=== PATIENT | male | born 1955 | race Caucasian/White ===

== ENCOUNTER 2016-11-03 19:24 | Emergency (ER) | payer BC ==
[2016-11-03 19:29] VITALS: BP 137/85; PULSE 75; TEMP 97.6; BMI 27.1
[2016-11-03] MEDS ORDERED: TRIAMCINOLONE ACET 40MG/1ML VIAL IM ONE (20:34)
[2016-11-03] MEDS ORDERED: TRIAMCINOLONE ACET 40MG/1ML VIAL ONE (20:36)
--- NOTE | 2016-11-03 20:42 | PDOC ---
History of Present Illness - General Chief Complaint: Rash Stated Complaint: RASH Time Seen by Provider: 11/03/16 19:55 History Source: Patient Exam Limitations: No Limitations - History of Present Illness Initial Comments: 11/03/16 20:37 My Chief Complaint: itchy rash getting worse arms, legs and abdomen History of Present Illness: Pt. is a 61 y'/o male with h/o gout and renal calculi here today complaining of worsening pruritic rash to b/l arms, legs and abdomen after working outside last week with trees. Pt. saw his PCP was given rx for prednisone 20 mg bid for 3 days than one tab daily pt. took for 6 days without improvement rash continues to develop. Pt states he gets this every year is highly allergic to poison león. Pt. denies any difficulty swollowing or breathing. Pt. requesting shot of Kenalog Timing/Duration: getting worse Severity: moderate Associated Symptoms: reports: rash (pruritic) Past History - Past Medical History Allergies/Adverse Reactions: Allergies Allergy/AdvReac Type Severity Reaction Status Date / Time No Known Allergies Allergy Verified 11/03/16 19:27 Home Medications: Ambulatory Orders Allopurinol [Zyloprim -] 0 mg PO DAILY 03/18/16 Anemia: No Asthma: No Cancer: No Cardiac Disorders: No CVA: No COPD: No CHF: No Dementia: No Diabetes: No GI Disorders: No Disorders: No HTN: No Hypercholesterolemia: No Kidney Stones: Yes Liver Disease: No Suicide Attempt (Hx): No Seizures: No Thyroid Disease: No - Surgical History Abdominal Surgery: Yes (HIATAL HERNIA REPAIR) Cholecystectomy: Yes - Psycho/Social/Smoking Cessation Hx Anxiety: No Suicidal Ideation: No Smoking Status: No Smoking History: Never smoked Have you smoked in the past 12 months: No Number of Cigarettes Smoked Daily: 0 If you are a former smoker, when did you quit?: STOPPED 30YEARS AGO Hx Alcohol Use: No Drug/Substance Use Hx: No Substance Use Type: None Hx Substance Use Treatment: No Review of Systems - Review of Systems Able to Perform ROS?: Yes Constitutional: No: Symptoms Reported HEENTM: No: Symptoms Reported Respiratory: No: Symptoms reported Cardiac (ROS): No: Symptoms Reported ABD/GI: No: Symptoms Reported : No: Symptoms Reported Musculoskeletal: No: Symptoms Reported Integumentary: Yes: Pruritus, Rash (b/ arms, abdomen and legs) Neurological: No: Symptoms reported *Physical Exam - Vital Signs Last Vital Signs Temp Pulse Resp BP Pulse Ox 97.6 F 75 18 137/85 96 11/03/16 19:27 11/03/16 19:27 11/03/16 19:27 11/03/16 19:27 11/03/16 19:27 - Physical Exam General Appearance: Yes: Appropriately Dressed Respiratory/Chest: positive: Lungs Clear, Normal Breath Sounds. negative: Chest Tender, Respiratory Distress Cardiovascular: positive: Regular Rhythm, Regular Rate, S1, S2 Integumentary: positive: Rash (b/l arms linear rash with tiny vesicles some dry , and b/l lower legs, few on abdomen ) Neurologic: positive: Alert, Normal Response, Responsive Medical Decision Making - Medical Decision Making 11/03/16 20:42 Pt. is a 61 y'/o male with h/o gout and renal calculi here today complaining of worsening pruritic rash to b/l arms, legs and abdomen after working outside last week with trees. Pt. saw his PCP was given rx for prednisone 20 mg bid for 3 days than one tab daily pt. took for 6 days without improvement rash continues to develop. Pt states he gets this every year is highly allergic to poison león. Pt. denies any difficulty swollowing or breathing. Pt. requesting shot of Kenalog Contact dermatitis PLAN: kenalog 40 mg IM now pt to stop prednisone *DC/Admit/Observation/Transfer Diagnosis at time of Disposition: Toxicodendron dermatitis - Discharge Dispostion Disposition: HOME Condition at time of disposition: Stable - Patient Instructions Additional Instructions: RETURN TO EMERGENCY ROOM IF SYMPTOMS WORSEN OR NEW SYMPTOMS DEVELOP FOLLOW UP WITH YOUR PRIMARY CARE PHYSICIAN WITHIN NEXT FEW DAYS STOP PREDNISONE PATIENT VOICED UNDERSTANDING OF DISCHARGE INSTRUCTIONS AND ALL QUESTIONS WERE ANSWERED
== END 2016-11-03 20:48 | disposition home or self-care (01) ==
LOC: JERFT 19:24
PROC: 3E0233Z Introduction of Anti-inflammatory into Muscle, Percutaneous Approach (ICD-10-PCS; principal; 2016-11-03)
DX: L23.7 Allergic contact dermatitis due to plants, except food (principal)
CPT/HCPCS: 99281-25

== ENCOUNTER 2016-11-22 05:25 | Observation (INO) | payer BC ==
[2016-11-22 05:51] VITALS: BMI 28.5
[2016-11-22] MEDS ORDERED: KETOROLAC TROMETHAMINE 30 MG/1 ML VIAL IVPUSH ONE (07:56)
--- NOTE | 2016-11-22 08:03 | PDOC ---
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 He first noticed the swelling on Wednesday in his 5th digit. Since then, it has spread to his whole hand. He is unable to close his fist or fully extend his 5th digit. He has not noted any warmth or erythema at the site. He denies fevers/chills or any other systemic symptoms. He has never had similar symptoms with gout flares. REVIEW OF SYSTEMS: GENERAL/CONSTITUTIONAL: No fever or chills. No weakness. No weight change. HEAD, EYES, EARS, NOSE AND THROAT: No change in vision. No ear pain or discharge. No sore throat. CARDIOVASCULAR: No chest pain or palpitations. RESPIRATORY: No cough, wheezing, or shortness of breath. GASTROINTESTINAL: No nausea, vomiting, diarrhea or constipation. GENITOURINARY: No dysuria, frequency, or change in urination. MUSCULOSKELETAL: See HPI SKIN: No rash or easy bruising. NEUROLOGIC: No headache, vertigo, loss of consciousness, or loss of sensation. PSYCHIATRIC: No depression or anxiety. ENDOCRINE: No increased thirst. No abnormal weight change. HEMATOLOGIC/LYMPHATIC: No anemia, easy bleeding, or history of blood clots. ALLERGIC/IMMUNOLOGIC: No hives or skin allergy. No latex allergy. PHYSICAL EXAM: GENERAL: The patient is awake, alert, and fully oriented, in no acute distress. HEAD: Normal with no signs of trauma. ENT: Pupils equal, round and reactive to light, extraocular movements intact, sclera anicteric, conjunctiva clear. Neck supple. LUNGS: Clear to auscultation bilaterally. Normal excursion. No respiratory distress or use of accessory muscles. CV: RRR, S1/S2, no MRG. Cap refill < 2 sec. ABDOMEN: Soft, non-distended, non-tender. EXTREMITIES: Markedly edematous right hand; 5th digit held in flexion, unable to fully extend, very tender. Mild forearm and upper arm tenderness.No appreciable erythema or warmth. Radial and ulnar pulses 2+. Compartments soft. NEUROLOGICAL: Normal speech, normal gait. CN II-XII grossly intact. PSYCH: Normal mood, normal affect. SKIN: Warm, dry, normal turgor, no rashes or lesions noted. Past History - Past Medical History Allergies/Adverse Reactions: Allergies Allergy/AdvReac Type Severity Reaction Status Date / Time No Known Allergies Allergy Verified 11/22/16 05:51 Home Medications: Ambulatory Orders Allopurinol [Zyloprim -] 0 mg PO DAILY 03/18/16 Anemia: No Asthma: No Cancer: No Cardiac Disorders: No CVA: No COPD: No CHF: No Dementia: No Diabetes: No GI Disorders: No Disorders: No HTN: No Hypercholesterolemia: No Kidney Stones: Yes Liver Disease: No Suicide Attempt (Hx): No Seizures: No Thyroid Disease: No - Surgical History Abdominal Surgery: Yes (HIATAL HERNIA REPAIR) Cholecystectomy: Yes - Psycho/Social/Smoking Cessation Hx Anxiety: No Suicidal Ideation: No Smoking Status: No Smoking History: Never smoked Have you smoked in the past 12 months: No Number of Cigarettes Smoked Daily: 0 If you are a former smoker, when did you quit?: STOPPED 30YEARS AGO Information on smoking cessation initiated: No Hx Alcohol Use: No Drug/Substance Use Hx: No Substance Use Type: None Hx Substance Use Treatment: No *Physical Exam - Vital Signs Last Vital Signs Temp Pulse Resp BP Pulse Ox 98.7 F 56 L 18 146/94 99 11/22/16 05:48 11/22/16 05:48 11/22/16 05:48 11/22/16 05:48 11/22/16 05:48 ED Treatment Course - LABORATORY CBC & Chemistry Diagram: 11/22/16 08:18 11/22/16 08:18 - RADIOLOGY Radiology Studies Ordered: Category Date Time Status HAND- RIGHT [RAD] Stat Radiology 11/22/16 08:02 Ordered DUPLEX VASCUL US-1 ARM [US] Stat Ultrasound 11/22/16 08:02 Ordered Medical Decision Making - Medical Decision Making 11/22/16 08:20 A/P: 61 year old male with non-traumatic right hand swelling and limited ROM. Differential includes flexor tenosynovitis, upper extremity DVT, and gout ( although atypical). 1. Labs including CBC, comp, ESR/CRP, uric acid 2. Hand x-ray 3. Upper extremity duplex u/s 4. Toradol 30mg IVP for pain 5. Empiric antibiotics for flexor tenosynovitis 6. Orthopedic consultation 11/22/16 09:11 Duplex: negative for DVT Hand xray: swelling, flexed digits Uric acid is within normal limits at 5.1 Orthopedics paged for urgent evaluation 11/22/16 10:04 Orthopedics paged 11/22/16 10:[address] Mendez who will evaluate in ED. 11/22/16 12:[address] Mendez who recommends observation and IV abx. Dr. Martinez accepts admission. Requests ID consult, Solu-Medrol, and allopurinol to be given now. *DC/Admit/Observation/Transfer Diagnosis at time of Disposition: Flexor tenosynovitis of finger Cellulitis Qualifiers: Site of cellulitis: trunk Site of cellulitis of trunk: back Qualified Code(s): L03.312 - Cellulitis of back [any part except buttock] - Discharge Dispostion Admit: Yes - Referrals Referrals: Nghia Hawley MD [Primary Care Provider] -
[2016-11-22] MEDS ORDERED: KETOROLAC TROMETHAMINE 30 MG/1 ML VIAL ONE (08:12)
[2016-11-22] MEDS ORDERED: CEFTRIAXONE 1 GM in DEXTROSE 5%-WATER - 50 ML IVPB ONE (08:21)
--- NOTE | 2016-11-22 08:21 | PDOC ---
*Physical Exam - Vital Signs Last Vital Signs Temp Pulse Resp BP Pulse Ox 98.7 F 56 L 18 146/94 99 11/22/16 05:48 11/22/16 05:48 11/22/16 05:48 11/22/16 05:48 11/22/16 05:48 ED Treatment Course - LABORATORY CBC & Chemistry Diagram: 11/22/16 08:18 11/22/16 08:18 - Medications Given in the ED: ED Medications Discontinued Medications Generic Name Dose Route Start Last Admin Trade Name Marcela PRN Reason Stop Dose Admin Ketorolac Tromethamine 30 mg 11/22/16 07:56 11/22/16 08:10 Toradol Injection - IVPUSH 11/22/16 07:57 30 mg ONCE ONE Administration Medical Decision Making - Medical Decision Making 11/22/16 10:33 Agree with POWER TRANSMISSION ENGINEER's evaluation, assessment, and plan. 61M with h/o gout presents to ER with R hand pain and swelling. Began in the 5th digit and spread to rest of fingers. Exam notable for tenderness along flexor tendons with severe pain upon extension of fingers. Concerning for flexor tenosynovitis. - Labs, cultures - XR - Ortho consult - IV abx - Admit 11/22/16 14:28 Pt seen by ortho Dr. Santamaria, who does not believe pt has FTS. Recommends IV abx and admission. *DC/Admit/Observation/Transfer Diagnosis at time of Disposition: Flexor tenosynovitis of finger Cellulitis Qualifiers: Site of cellulitis: trunk Site of cellulitis of trunk: back Qualified Code(s): L03.312 - Cellulitis of back [any part except buttock] - Referrals Referrals: Nghia Hawley MD [Primary Care Provider] - - Attestations Physician Attestion: 11/22/16 14:30 I, Dr. Aaron Ayon MD, attest that this document has been prepared under my direction and personally reviewed by me in its entirety. I further attest, that it accurately reflects all work, treatment, procedures and medical decision -making performed by me.
[2016-11-22 08:31] LABS: BASOPHIL 0.7 % (0-2.0); MCH 32.6 pg (25.7-33.7); MCHC 33.7 g/dl (32.0-35.9); MEAN CELL VOLUME 96.9 fl (80-96); MEAN PLT VOLUME 8.1 fl (7.5-11.1); PLATELET COUNT 126 K/MM3 (134-434); RDW 13.9 % (11.9-15.9); WHITE BLOOD COUNT 4.3 K/mm3 (4.0-10.0)
[2016-11-22 08:57] LABS: C-REACTIVE PROTEIN < 0.3 MG/DL (0.00-0.3)
[2016-11-22 08:58] LABS: INR 1.04 (0.82-1.09); PROTHROMBIN TIME (PATIENT) 11.5 SEC (9.98-11.88)
[2016-11-22 09:03] LABS: ALBUMIN 3.5 g/dl (3.4-5.0); ALK PHOS 81 U/L (45-117); ANION GAP 8 (8-16); BILIRUBIN,TOTAL 1.2 mg/dL (0.2-1.0); CALCIUM 8.6 mg/dL (8.5-10.1); CO2 28 mmol/L (21-32); GLUCOSE,RANDOM 91 mg/dL (74-106); SGOT/AST 22 U/L (15-37); SGPT/ALT 35 U/L (12-78); TOT PROT 6.4 g/dl (6.4-8.2); URIC ACID 5.1 mg/dL (2.6-7.2)
[2016-11-22] MEDS ORDERED: VANCOMYCIN 1 GRAM (PRE-DOCKED) 250 ML IVPB ONE ×2 (09:05→22:30)
[2016-11-22] MEDS ORDERED: CEFTRIAXONE 50 ML ONE (09:05)
[2016-11-22] MEDS ORDERED: VANCOMYCIN 1,000 MG in DEXTROSE 5%-WATER - 250 ML IVPB SCH (10:00)
--- NOTE | 2016-11-22 12:32 | CON.ORTH ---
Consult Consult Specialty:: orthopedics Reason for Consultation:: right hand pain - History of Present Illness History of Present Illness: 61y M here for R hand pain, swelling -started as swelling in the small finger -no trauma -no previous similar episodes in hand but does have hx of gout -pain, swelling spread to hand, fingers -no fevers, chills, nightsweats -notes moderate pain - History Source History Provided By: Patient Limitations to Obtaining History: No Limitations - Alcohol/Substance Use Hx Alcohol Use: No - Smoking History Smoking history: Never smoked Have you smoked in the past 12 months: No Aproximately how many cigarettes per day: 0 If you are a former smoker, when did you quit?: STOPPED 30YEARS AGO Home Medications - Allergies Allergies/Adverse Reactions: Allergies Allergy/AdvReac Type Severity Reaction Status Date / Time No Known Allergies Allergy Verified 11/22/16 05:51 - Home Medications Home Medications: Ambulatory Orders Allopurinol [Zyloprim -] 0 mg PO DAILY 03/18/16 Physical Exam for Ortho Vital Signs: Vital Signs Temperature 98.7 F 11/22/16 05:48 Pulse Rate 50 L 11/22/16 09:48 Respiratory Rate 18 11/22/16 05:48 Blood Pressure 134/90 11/22/16 09:48 O2 Sat by Pulse Oximetry (%) 98 11/22/16 09:48 Constitutional: Yes: Well Nourished, No Distress, Calm Cardiovascular: Yes: Regular Rate and Rhythm Respiratory: Yes: Regular. No: Accessory Muscle Use Gastrointestinal: Yes: Soft. No: Distention Extremities: Yes: Other (right hand exam shows mild erythema. no skin breaks. diffuse moderate swelling but no fusiform swelling. moderate limitation to finger rom but active flexion, extension intact. there is mild discomfort on passive extension. no tenderness over the flexor sheaths in the palm. all of the digits are held in slight flexion. sensation intact to lt. fds fdp ed intact to all digits. cr<2) Labs: CBC, BMP 11/22/16 08:18 11/22/16 08:18 INR, PTT INR 1.04 (0.82-1.09) 11/22/16 08:30 Imaging - Results X-ray: Report Reviewed, Image Reviewed (there is mild degenerative change, no fractures, no foreign body) Problem List - Problems (1) Cellulitis of right hand Code(s): L03.113 - CELLULITIS OF RIGHT UPPER LIMB
[2016-11-22] MEDS ORDERED: ALLOPURINOL 300 MG TABLET (FP) PO ONE (14:21)
[2016-11-22] MEDS ORDERED: methylPREDNISolone NA SUCC 40 MG/1 ML VIAL IVPB ONE (14:22)
[2016-11-22] MEDS ORDERED: methylPREDNISolone NA SUCC 40 MG/1 ML VIAL ONE (14:42)
--- NOTE | 2016-11-22 19:54 | HP ---
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 On 11/20 his right fifth finger became swollen and on 11/21 swelling got worse and spread all over the right hand and he could sleep due to severe pain and came to ED at 5.30 this AM .Denies any cuts of the skin of the hand but had used bleach to remove the chemical from his hand. He was seen by in the ED and diagnosed cellulitis. Xray showed only swelling and duplex US did not show any thrombosis. He was treated with IV Vancomycin and Rocephin and also give IV Solumedrol. Patient now feels that he can flex the fingers which he couldn't before and pain is much less. He has chronic gout History Source: Patient Limitations to Obtaining History: No Limitations - Past Medical History Renal/: Yes: Renal Calculi Musculoskeletal: Yes: Chronic low back pain Rheumatology: Yes: Gout - Past Surgical History Past Surgical History: Yes: Cholecystectomy, Hernia Repair - Smoking History Smoking history: Never smoked Have you smoked in the past 12 months: No Aproximately how many cigarettes per day: 0 If you are a former smoker, when did you quit?: STOPPED 30YEARS AGO - Alcohol/Substance Use Hx Alcohol Use: No - Social History Usual Living Arrangement: Yes: With Spouse ADL: Independent History of Recent Travel: No Home Medications - Allergies Allergies/Adverse Reactions: Allergies Allergy/AdvReac Type Severity Reaction Status Date / Time No Known Allergies Allergy Verified 11/22/16 05:51 - Home Medications Home Medications: Ambulatory Orders Allopurinol [Zyloprim -] 0 mg PO DAILY 03/18/16 Review of Systems - Review of Systems Constitutional: reports: No Symptoms Eyes: reports: No Symptoms HENT: reports: No Symptoms Neck: reports: No Symptoms Cardiovascular: reports: No Symptoms Respiratory: reports: No Symptoms Gastrointestinal: reports: No Symptoms Genitourinary: reports: No Symptoms Breasts: reports: No Symptoms Reported Musculoskeletal: reports: Back Pain Integumentary: reports: No Symptoms Neurological: reports: No Symptoms Endocrine: reports: No Symptoms Hematology/Lymphatic: reports: No Symptoms Psychiatric: reports: No Symptoms Physical Examination Vital Signs: Vital Signs Temperature 97.7 F 11/22/16 17:24 Pulse Rate 50 L 11/22/16 17:24 Respiratory Rate 18 11/22/16 17:24 Blood Pressure 141/90 11/22/16 17:24 O2 Sat by Pulse Oximetry (%) 96 11/22/16 16:32 Constitutional: Yes: Well Nourished, No Distress, Calm Eyes: Yes: Conjunctiva Clear, EOM Intact HENT: Yes: WNL Neck: Yes: Supple, Trachea Midline Cardiovascular: Yes: Regular Rate and Rhythm, S1, S2 Respiratory: Yes: Regular, CTA Bilaterally Gastrointestinal: Yes: Normal Bowel Sounds, Soft Renal/: Yes: WNL Breast(s): Yes: WNL Musculoskeletal: Yes: Back Pain Extremities: Yes: Other (Right hand shows moderate swelling of all fingers and the fifth finger shows mild erythema of the skin without any tenderness.He is able to flex all fingers and etend as well) Edema: No Peripheral Pulses WNL: Yes Integumentary: Yes: Other (skin of right hand fingers show swelling moderate with erythema of skin of right fifth finger.) Neurological: Yes: Alert, Oriented ...Motor Strength: WNL Psychiatric: Yes: Alert, Oriented Imaging - Results X-ray: Report Reviewed Ultrasound: Report Reviewed Problem List - Problems (1) Cellulitis of right hand Assessment/Plan: There is moderate to severe swelling of all fingers and also of palmar side of right hand with erythema of fifth finger difficult to say whether only due to infection versus chemical exposure Code(s): L03.113 - CELLULITIS OF RIGHT UPPER LIMB (2) Chronic gout Assessment/Plan: Uric acid is normal at present Code(s): [id number].[id number] - CHRONIC GOUT, UNSPECIFIED, WITHOUT TOPHUS (TOPHI) Assessment/Plan Cellulitis of right hand Chronic gout. Plan:Continue IV Rocephin and also small dose of steroid.
[2016-11-22] MEDS ORDERED: VANCOMYCIN 1 GRAM (PRE-DOCKED) 250 ML IVPB SCH (22:00)
[2016-11-23 08:35] LABS: BASOPHIL 0.3 % (0-2.0); EOSINOPHIL 0.3 % (0-4.5); MCH 32.5 pg (25.7-33.7); MCHC 33.6 g/dl (32.0-35.9); MEAN CELL VOLUME 96.5 fl (80-96); MEAN PLT VOLUME 8.5 fl (7.5-11.1); PLATELET COUNT 139 K/MM3 (134-434); RDW 13.7 % (11.9-15.9); WHITE BLOOD COUNT 5.3 K/mm3 (4.0-10.0)
[2016-11-23] MEDS ORDERED: cefTRIAXone SODIUM 1 GM VIAL ONE (09:10)
[2016-11-23] MEDS ORDERED: DEXTROSE 5%-WATER - 50 ML IVPB ONE (09:10)
[2016-11-23] MEDS ORDERED: CEFTRIAXONE 1 GM in DEXTROSE 5%-WATER - 50 ML IVPB SCH (10:00)
[2016-11-23 13:29] VITALS: BP 135/83; PULSE 60; TEMP 98.8
--- NOTE | 2016-11-24 07:40 | CONS ---
DATE OF CONSULTATION: DATE OF DICTATION: 11/23/2016 This is a 61-year-old [place] male who I am asked to see for a soft tissue injury of the right fifth finger and hand. The patient presented to the emergency room yesterday. 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 The right fifth pinky finger became inflamed with some mild swelling of the hand for which he was admitted. He had no fever or chills and was empirically treated with ceftriaxone per the emergency room. He is not diabetic. Has no other unusual hobbies. Denies any gardening, fish contact or other unusual exposures. He is followed by Dr. Hawley and other than a history of gout has been in good health. PHYSICAL EXAMINATION: General: He was an alert male in no acute distress. Vital Signs: Temperature 98.8, pulse 60, blood pressure 135/83, respires 18. Lungs: Clear to percussion and auscultation. Heart: S1, S2 regular rhythm without murmur. Abdomen: Soft, nontender without organomegaly. Extremities: Revealed mild swelling of the left fifth fingers and mild swelling of the hand with no tenderness, redness or lymphangitis. He does have some mild limitation of flexion of the right fifth finger. LABORATORIES: The white count of 4.3, hemoglobin 14.7, platelets 126 with ESR of 6, INR of 1.0, BUN 19, creatinine 1.0, CRP 0.8. ASSESSMENT: Agree with previous treatment with ceftriaxone for possible cellulitis of the right hand. Clinically appears improved since admission according to Dr. Hawley. Can be switched safely to Keflex 500 mg p.o. three times a day for a week. If no improvement should be referred for consultation with hand surgeon. Discussed with Dr. Hawley once again. EMERSON MADRIGAL M.D. HAFSA/[id number]
== END 2016-11-23 16:20 | disposition home or self-care (01) ==
LOC: JER 05:25 → JERBED 13:13 → J8W 16:59
PROVIDERS: ADMIT Internal Medicine Hematology & Oncology; ATTEND Internal Medicine Hematology & Oncology
PROC: 3E03329 Introduction of Other Anti-infective into Peripheral Vein, Percutaneous Approach (ICD-10-PCS; principal; 2016-11-22)
PROC: 3E0333Z Introduction of Anti-inflammatory into Peripheral Vein, Percutaneous Approach (ICD-10-PCS; 2016-11-22)
DX: L03.113 Cellulitis of right upper limb (principal); M65.841 Other synovitis and tenosynovitis, right hand; M1A.9XX0 Chronic gout, unspecified, without tophus (tophi); Z87.442 Personal history of urinary calculi
CPT/HCPCS: 36415; 73130-TC-RT; 80053; 84550; 85025; 85610; 85651; 86140; 93971; 99283-25; G0378

== ENCOUNTER 2017-04-08 16:09 | Emergency (ER) | payer BC ==
[2017-04-08 16:22] VITALS: BP 136/88; PULSE 58; TEMP 97.9; BMI 28.1
--- NOTE | 2017-04-08 16:59 | PDOC ---
History of Present Illness - General Chief Complaint: Eye Problem Stated Complaint: EYE PAIN Time Seen by Provider: 04/08/17 16:43 History Source: Patient Exam Limitations: No Limitations - History of Present Illness Initial Comments: 04/08/17 20:06 62 yr male with left eye redness and swelling to the lower lid for 3 days, pt now with swelling itching redness below the eye. no vision change. Severity: mild Past History - Past Medical History Allergies/Adverse Reactions: Allergies Allergy/AdvReac Type Severity Reaction Status Date / Time No Known Allergies Allergy Verified 04/08/17 16:19 Home Medications: Ambulatory Orders Allopurinol [Zyloprim -] 0 mg PO DAILY 03/18/16 Cephalexin [Keflex] 500 mg PO Q6H #40 capsule 11/23/16 Clindamycin [Cleocin -] 450 mg PO Q8H #63 capsule 04/08/17 Polymyxin B Sulf/Trimethoprim [Polymyxin B-Tmp Eye Drops] 2 drop OS DAILY #1 bottle 04/08/17 Anemia: No Asthma: No Cancer: No Cardiac Disorders: No CVA: No COPD: No CHF: No Dementia: No Diabetes: No GI Disorders: No Disorders: No HTN: No Hypercholesterolemia: No Kidney Stones: Yes Liver Disease: No Seizures: No Thyroid Disease: No - Surgical History Abdominal Surgery: Yes (HIATAL HERNIA REPAIR) Cholecystectomy: Yes - Suicide/Smoking/Psychosocial Hx Smoking Status: No Smoking History: Never smoked Have you smoked in the past 12 months: No Number of Cigarettes Smoked Daily: 0 If you are a former smoker, when did you quit?: STOPPED 30YEARS AGO Information on smoking cessation initiated: No Hx Alcohol Use: No Drug/Substance Use Hx: No Substance Use Type: None Hx Substance Use Treatment: No Review of Systems - Review of Systems Able to Perform ROS?: Yes Is the patient limited Slovenian proficient: No Constitutional: No: Symptoms Reported HEENTM: Yes: Symptoms Reported *Physical Exam - Vital Signs Last Vital Signs Temp Pulse Resp BP Pulse Ox 97.9 F 58 L 17 136/88 97 04/08/17 16:19 04/08/17 16:19 04/08/17 16:19 04/08/17 16:19 04/08/17 16:19 - Physical Exam General Appearance: Yes: Nourished, Appropriately Dressed HEENT: positive: EOMI, ARELIS, Other (left eye with stye to the inside lower lid with erythema, mild swelling below the eyelid with some redness, neg orbital swelling or tenderness, EOMI without pain ) Neck: positive: Supple Respiratory/Chest: positive: Lungs Clear, Normal Breath Sounds Cardiovascular: positive: Regular Rhythm, Regular Rate Medical Decision Making - Medical Decision Making 04/08/17 20:10 cc: left eyelid sweliling, ithcy pain and swelling below the lid neg fb sensation, neg vision change will treat for stye, preseptal cellulitus strict follow up in 24hrs with his doctor or return to ER if worsening symptoms *DC/Admit/Observation/Transfer Diagnosis at time of Disposition: Periorbital cellulitis of left eye Stye Qualifiers: Laterality: left Eyelid: lower Qualified Code(s): H00.015 - Hordeolum externum left lower eyelid - Discharge Dispostion Disposition: HOME Condition at time of disposition: Good - Prescriptions Prescriptions: Clindamycin [Cleocin -] 450 mg PO Q8H #63 capsule Polymyxin B Sulf/Trimethoprim [Polymyxin B-Tmp Eye Drops] 2 drop OS DAILY #1 bottle - Referrals Referrals: Nghia Hawley MD [Primary Care Provider] - - Patient Instructions Additional Instructions: use the eye drops as directed take the antibiotics as directed frequent warm moist compresses to the eye take motrin for pain as needed follow with your doctor tomorrow Return to ER for any worsening symptoms - Post Discharge Activity
== END 2017-04-08 17:13 | disposition home or self-care (01) ==
LOC: JERFT 16:09
DX: H05.012 Cellulitis of left orbit (principal); H00.015 Hordeolum externum left lower eyelid
CPT/HCPCS: 99281-25

== ENCOUNTER 2017-05-18 05:23 | Emergency (ER) | payer BC ==
[2017-05-18 05:39] VITALS: BP 117/77; PULSE 68; TEMP 100.9; BMI 26.6
[2017-05-18] MEDS ORDERED: KETOROLAC TROMETHAMINE 60 MG/2 ML VIAL IM ONE (05:41)
--- NOTE | 2017-05-18 05:42 | PDOC ---
History of Present Illness - General Chief Complaint: Respiratory Stated Complaint: COUGH,FEVER SORE THROAT Time Seen by Provider: 05/18/17 05:40 - History of Present Illness Initial Comments: 05/18/17 05:43 This 62-year-old man with a history of gout/cholecystectomy/bilateral inguinal hernia/renal stones presents with several day history of febrile illness. Patient states that on Wednesday, May 14, he began to have runny nose and subjective fever. This was quickly followed by cough (becoming productive of yellowish sputum) and sore throat. He has been having body aches during this time ; he also has pain in the anterior and posterior chest with coughing. He has been taking ibuprofen (OTC) for bodyaches and subjective fever for the last few days. Patient states that his has similar symptoms; he also lives with his daughter and grandchildren; children have no sore throat or flu like symptoms at this time. Patient denies recurrent bronchitis/history of asthma or COPD. He was a one- time smoker but quit approximately 30 years ago. Patient is been taking owlu-vas-tmhoono medications ("Melisa-Kirby cold and flu " as well as Advil) Patient did not receive influenza vaccine this year. No recent travel. Past History - Past Medical History Allergies/Adverse Reactions: Allergies Allergy/AdvReac Type Severity Reaction Status Date / Time No Known Allergies Allergy Verified 05/18/17 05:25 Home Medications: Ambulatory Orders Allopurinol [Zyloprim -] 0 mg PO 05/18/17 Cefuroxime Axetil [Ceftin -] 500 mg PO Q12H #20 tablet 05/18/17 Chlorpheniramine/Dextromethorp [Robitussin Long-Acting Liq] 5 ml PO TID #1 bottle 05/18/17 Anemia: No Asthma: No Cancer: No Cardiac Disorders: No CVA: No COPD: No CHF: No DVT: No Dementia: No Diabetes: No GI Disorders: No Disorders: No HTN: No Hypercholesterolemia: No Kidney Stones: Yes Liver Disease: No Seizures: No Thyroid Disease: No Other medical history: GOUT - Surgical History Abdominal Surgery: Yes (HIATAL HERNIA REPAIR) Cholecystectomy: Yes - Suicide/Smoking/Psychosocial Hx Smoking Status: No Smoking History: Former smoker Have you smoked in the past 12 months: No Number of Cigarettes Smoked Daily: 0 If you are a former smoker, when did you quit?: STOPPED 30YEARS AGO Information on smoking cessation initiated: No Hx Alcohol Use: Yes (DAILY WINE) Drug/Substance Use Hx: No Substance Use Type: None Hx Substance Use Treatment: No Review of Systems - Review of Systems Able to Perform ROS?: Yes Comments:: 12 point review of systems is negative except for what is noted in the history of present illness *Physical Exam - Vital Signs Last Vital Signs Temp Pulse Resp BP Pulse Ox 100.9 F H 68 18 117/77 98 05/18/17 05:31 05/18/17 05:31 05/18/17 05:31 05/18/17 05:31 05/18/17 05:31 - Physical Exam Comments: GENERAL: Adult male, alert and oriented 3 speaking in full sentences; no respiratory distress HEAD: Normal with no signs of trauma. EYES: PERRLA, EOMI, sclera anicteric, conjunctiva clear. ENT: Ears normal, nares patent, moderately erythematous area pharynx without exudates; moist mucous membranes. NECK: Normal range of motion, supple without lymphadenopathy, JVD, or masses. LUNGS: Breath sounds equal, clear to auscultation bilaterally. No wheezes, and no crackles. HEART:Regular rate and rhythm, normal S1 and S2 without murmur, rub or gallop. ABDOMEN:.normal bowel sounds No guarding,tenderness or rebound.No masses No distention. EXTREMITIES: Normal range of motion, no edema. No clubbing or cyanosis. No erythema, or tenderness. NEUROLOGICAL: Cranial nerves II through XII grossly intact. Normal speech. No focal neurological deficits. MUSCULOSKELETAL: Back non-tender to palpation, no CVA tenderness SKIN: Warm, Dry, normal turgor, no rashes or lesions noted. Progress Note - Progress Note Progress Note: Chest x-ray PA and lateral performed. Preliminary interpretation: No evidence of infiltrate or other acute pulmonary process. Toradol 60 mg IM administered for body aches and fever Nasopharyngeal swab for rapid influenza is negative. Clinical presentation most consistent with acute bronchitis. Patient will be started on Ceftin 500 mg twice a day. Also, prescription for dextromethorphan cough syrup (Robitussin long-acting) transmitted to pharmacy Patient should follow-up with Dr. Braden within the next 48 hours and return to the emergency room if he has shortness of breath/high fever/cough *DC/Admit/Observation/Transfer Diagnosis at time of Disposition: Acute bronchitis Acute bronchitis Qualifiers: Bronchitis organism: unspecified organism Qualified Code(s): J20.9 - Acute bronchitis, unspecified - Discharge Dispostion Disposition: HOME Condition at time of disposition: Stable - Prescriptions Prescriptions: Cefuroxime Axetil [Ceftin -] 500 mg PO Q12H #20 tablet Chlorpheniramine/Dextromethorp [Robitussin Long-Acting Liq] 5 ml PO TID #1 bottle - Referrals Referrals: Nghia Hawley MD [Primary Care Provider] - 2 Days - Patient Instructions Printed Discharge Instructions: DI for Acute Bronchitis Additional Instructions: Rest; drink plenty of fluids Consider using vaporizer in room especially at night Robitussin long-acting cough syrup 1 teaspoon 3 times a day as needed for cough Ceftin 500 mg twice a day for 10 days Tylenol alternating with Advil (with food) as needed for pain/fever Follow-up with Dr. Chavez within the next 2 days Return to ER if you have difficulty breathing/wheezing/high fever/persistent cough - Post Discharge Activity
[2017-05-18] MEDS ORDERED: CEFUROXIME AXETIL 500 MG TABLET PO ONE (06:50)
== END 2017-05-18 06:54 | disposition home or self-care (01) ==
LOC: FER 05:23
PROC: 3E0233Z Introduction of Anti-inflammatory into Muscle, Percutaneous Approach (ICD-10-PCS; principal; 2017-05-18)
DX: J20.9 Acute bronchitis, unspecified (principal)
CPT/HCPCS: 71046-TC; 87804; 99281-25

== ENCOUNTER 2017-07-17 08:30 | Emergency (ER) | payer BC ==
[2017-07-17 08:34] VITALS: BP 142/97; PULSE 58; TEMP 97.8
--- NOTE | 2017-07-17 09:11 | PDOC ---
History of Present Illness - General History Source: Patient Exam Limitations: No Limitations - History of Present Illness Initial Comments: 07/17/17 09:30 The patient is a 62-year-old male, with a significant past medical history of gout, cholecystectomy, bilateral inguinal hernia, and renal stones who presents to the ED with progressively worsening left lower quadrant pain and left-sided CVA tenderness that began on 07/15/17 s/p left-sided lithotripsy on Wednesday07/14/17 that was performed by Dr. Lopez. The patient reports taking Tylenol with no relief of his symptoms; his last dose was last night. He denies contacting Dr. Lopez about his current symptoms. He reports associated fever, dysuria, and diarrhea, but denies any nausea or vomiting. The patient denies any chills. Denies any hematuria. Denies shortness of breath or chest pain. Allergies: NKA Surgical History: hernia repairs, lithotripsy, cholecystectomy. PCP: Dr. Nghia Hawley Urologist: Dr. Lopez <Debi Price - Last Filed: 07/17/17 11:03> <Ally Perez - Last Filed: 07/17/17 11:15> - General Chief Complaint: Pain, Acute Stated Complaint: KIDNEY STONE Time Seen by Provider: 07/17/17 09:10 Past History <Debi Price - Last Filed: 07/17/17 11:03> - Past Medical History Anemia: No Asthma: No Cancer: No Cardiac Disorders: No CVA: No COPD: No CHF: No DVT: No Dementia: No Diabetes: No GI Disorders: No Disorders: No HTN: No Hypercholesterolemia: No Kidney Stones: Yes Liver Disease: No Seizures: No Thyroid Disease: No - Surgical History Abdominal Surgery: Yes (HIATAL HERNIA REPAIR) Cholecystectomy: Yes - Suicide/Smoking/Psychosocial Hx Smoking Status: No Smoking History: Never smoked Have you smoked in the past 12 months: No Number of Cigarettes Smoked Daily: 0 If you are a former smoker, when did you quit?: STOPPED 30YEARS AGO Information on smoking cessation initiated: No Hx Alcohol Use: Yes (DAILY WINE) Drug/Substance Use Hx: No Substance Use Type: None Hx Substance Use Treatment: No <Ally Perez - Last Filed: 07/17/17 11:15> - Past Medical History Allergies/Adverse Reactions: Allergies Allergy/AdvReac Type Severity Reaction Status Date / Time No Known Allergies Allergy Verified 07/17/17 08:34 Home Medications: Ambulatory Orders Allopurinol [Zyloprim -] 0 mg PO 05/18/17 Cefuroxime Axetil [Ceftin -] 500 mg PO Q12H #20 tablet 05/18/17 Chlorpheniramine/Dextromethorp [Robitussin Long-Acting Liq] 5 ml PO TID #1 bottle 05/18/17 Tamsulosin HCl [Flomax -] 0.4 mg PO DAILY #7 cap.er.24h 07/17/17 Review of Systems - Review of Systems Able to Perform ROS?: Yes Comments:: 07/17/17 09:35 GENERAL/CONSTITUTIONAL: (+)subjective fever. No chills. No weakness. HEAD, EYES, EARS, NOSE AND THROAT: No change in vision. No ear pain or discharge. No sore throat. CARDIOVASCULAR: No chest pain or shortness of breath. RESPIRATORY: No cough, wheezing, or hemoptysis. GASTROINTESTINAL: (+)nausea, left lower quadrant pain. No nausea, vomiting, or constipation. GENITOURINARY: No dysuria, frequency, or change in urination. MUSCULOSKELETAL: (+)Left-sided CVA tenderness. No joint swelling or pain. No neck pain. SKIN: No rash NEUROLOGIC: No headache, vertigo, loss of consciousness, or change in strength/ sensation. ENDOCRINE: No increased thirst. No abnormal weight change. HEMATOLOGIC/LYMPHATIC: No anemia, easy bleeding, or history of blood clots. ALLERGIC/IMMUNOLOGIC: No hives or skin allergy. <Debi Price - Last Filed: 07/17/17 11:03> *Physical Exam - Vital Signs Last Vital Signs Temp Pulse Resp BP Pulse Ox 97.8 F 58 L 18 142/97 98 07/17/17 08:31 07/17/17 08:31 07/17/17 08:31 07/17/17 08:31 07/17/17 08:31 - Physical Exam Comments: 07/17/17 09:37 GENERAL: Well developed, well nourished. Awake and alert. No acute distress. HEENT: Normocephalic, atraumatic. PERRLA, EOMI. No conjunctival pallor. Sclera are non- icteric. Moist mucous membranes. Oropharynx is clear. NECK: Supple. Full ROM. No JVD. Carotid pulses 2+ and symmetric, without bruits. No thyromegaly. No lymphadenopathy. CARDIOVASCULAR: Regular rate and rhythm. No murmurs, rubs, or gallops. Distal pulses are 2+ and symmetric. PULMONARY: No evidence of respiratory distress. Lungs clear to auscultation bilaterally. No wheezing, rales or rhonchi. ABDOMINAL: (+)Left lower quadrant tenderness. Soft. Non-distended. No rebound or guarding. No organomegaly. Normoactive bowel sounds. MUSCULOSKELETAL (+)Left CVA tenderness. Normal range of motion at all joints. No bony deformities. No cyanosis. No clubbing. No edema. No calf tenderness. SKIN: Warm and dry. Normal capillary refill. No rashes. No jaundice. NEUROLOGICAL: Alert, awake, appropriate. PSYCHIATRIC: Cooperative. Good eye contact. Appropriate mood and affect. <Debi Price - Last Filed: 07/17/17 11:03> - Vital Signs Last Vital Signs Temp Pulse Resp BP Pulse Ox 97.8 F 58 L 18 142/97 98 07/17/17 08:31 07/17/17 08:31 07/17/17 08:31 07/17/17 08:31 07/17/17 08:31 <Ally Perez - Last Filed: 07/17/17 11:15> ED Treatment Course - LABORATORY CBC & Chemistry Diagram: 07/17/17 09:30 07/17/17 09:30 - RADIOLOGY Radiology Studies Ordered: 07/17/17 11:00 Abdomen/Pelvis CT was reviewed by Dr. Perez and over-read by Radiology. Impression: Two adjacent calculi measuring 0.5 cm and 0.3 cm are noted within the intramural segment of the distal left ureter. There is also 0.4 cm distal left ureteral calculus adjacent to the urinary bladder. Mild to moderate hydronephrosis is seen. Nonobstructing left renal calculi. <Debi Price - Last Filed: 07/17/17 11:03> - LABORATORY CBC & Chemistry Diagram: 07/17/17 09:30 07/17/17 09:30 <Ally Perez - Last Filed: 07/17/17 11:15> Medical Decision Making - Medical Decision Making 07/17/17 11:03 Dr. Lopez was paged and notified at 10:58. Case was discussed at 11:[address] Lopez requests <Debi Price - Last Filed: 07/17/17 11:03> - Medical Decision Making 07/17/17 09:19 a/p: 62yo male with L kidney stone surgery on Wednesday -worsening pain since -urinary freq, hesitancy, urgency -LLQ/L CVA ttp -diarrhea -will obtain labs, ua, ucx, ct abd/pelvis -ivf hydration -toradol for pain -no hematuria -subjective fevers 07/17/17 10:57 labs reviewed no uti normal renal function pt with 3mm, 5mm stones at L UVJ - call placed to Dr. Joshi 07/17/17 11:09 re-eval : no pain at this time 07/17/17 11:[address] Lopez who recommends flomax, strain urine, follow up Wednesday with him in the office this was discussed in detail with the patient - pt agrees with the plan. answered all questions discussed all reasons to return to the ED discussed that the patient needs to go to the office wednesday. pt is stable for d/c to home. <Ally Perez - Last Filed: 07/17/17 11:15> *DC/Admit/Observation/Transfer - Attestations Scribe Attestion: 07/17/17 09:39 Documentation prepared by Debi Price, acting as medical record librarian for Ally Perez DO. <Debi Price - Last Filed: 07/17/17 11:03> - Discharge Dispostion Admit: No - Attestations Physician Attestion: 07/17/17 11:09 I, Dr. Ally Perez DO, attest that this document has been prepared under my direction and personally reviewed by me in its entirety. I further attest, that it accurately reflects all work, treatment, procedures and medical decision -making performed by me. <Ally Perez - Last Filed: 07/17/17 11:15> Diagnosis at time of Disposition: Kidney stone on left side - Discharge Dispostion Disposition: HOME Condition at time of disposition: Stable - Prescriptions Prescriptions: Tamsulosin HCl [Flomax -] 0.4 mg PO DAILY #7 cap.er.24h - Referrals Referrals: Nghia Hawlye MD [Primary Care Provider] - Joe Lopez MD [Staff Physician] - - Patient Instructions Printed Discharge Instructions: DI for Kidney Stones Additional Instructions: Please take tylenol as needed for pain. Please take the flomax daily. Please strain all urine. Please follow up with the urologist on Wednesday. Please return to the ED with any further complaints. Please make an appointment to see your PMD. - Post Discharge Activity
[2017-07-17] MEDS ORDERED: SODIUM CHLORIDE 0.9% 1000 ML INFUS.BAG IV ONE (09:18)
[2017-07-17] MEDS ORDERED: KETOROLAC TROMETHAMINE 30 MG/1 ML VIAL IVPUSH ONE (09:18)
[2017-07-17] MEDS ORDERED: KETOROLAC TROMETHAMINE 30 MG/1 ML VIAL ONE (09:22)
[2017-07-17 09:43] LABS: BASO % 1.1 % (0-2.0); EOS % 8.4 % (0-4.5); HEMATOCRIT 41.3 % (35.4-49); HEMOGLOBIN 14.2 GM/dL (11.7-16.9); LYMPH % 25.1 % (8-40); MCH 32.5 pg (25.7-33.7); MCHC 34.3 g/dl (32.0-35.9); MEAN CELL VOLUME 94.7 fl (80-96); MEAN PLT VOLUME 7.9 fl (7.5-11.1); MONO % 11.6 % (3.8-10.2); NEUT % 53.8 % (42.8-82.8); PLATELET COUNT 125 K/MM3 (134-434); RBC 4.36 M/mm3 (4.00-5.60); RDW 13.9 % (11.9-15.9); WHITE BLOOD COUNT 4.9 K/mm3 (4.0-10.0)
[2017-07-17 09:44] LABS: URINE APPEARANCE CLEAR; URINE BILIRUBIN NEGATIVE (<2.0 mg/dL); URINE BLOOD 3+ (NEGATIVE); URINE COLOR COLORLESS; URINE GLUCOSE (UA) NEGATIVE (NEGATIVE); URINE KETONE NEGATIVE (NEGATIVE); URINE LEUK ESTERASE NEGATIVE (NEGATIVE); URINE NITRITE NEGATIVE (NEGATIVE); URINE PROTEIN NEGATIVE (NEGATIVE); URINE UROBILINOGEN NEGATIVE mg/dL (0.2-1.0)
[2017-07-17 10:03] LABS: ALBUMIN 3.4 g/dl (3.4-5.0); ANION GAP 1 (8-16); BILIRUBIN,TOTAL 0.8 mg/dL (0.2-1.0); BLOOD UREA NITROGEN 22 mg/dL (7-18); CALCIUM 8.5 mg/dL (8.5-10.1); CHLORIDE 110 mmol/L (98-107); CO2 27 mmol/L (21-32); CREATININE 1.1 mg/dL (0.7-1.3); GLUCOSE,RANDOM 90 mg/dL (74-106); POTASSIUM 3.7 mmol/L (3.5-5.1); SGOT/AST 18 U/L (15-37); SGPT/ALT 25 U/L (12-78); SODIUM 138 mmol/L (136-145); TOT PROT 6.1 g/dl (6.4-8.2)
[2017-07-17 10:04] LABS: ALK PHOS 90 U/L (45-117)
[2017-07-17] MEDS ORDERED: TAMSULOSIN HCL 0.4 MG CAP.ER.24H (FP) PO ONE (11:02)
[2017-07-17] MEDS ORDERED: TAMSULOSIN HCL 0.4 MG CAP.ER.24H (FP) ONE (11:06)
== END 2017-07-17 11:30 | disposition home or self-care (01) ==
LOC: JER 08:30
PROC: 3E0333Z Introduction of Anti-inflammatory into Peripheral Vein, Percutaneous Approach (ICD-10-PCS; principal; 2017-07-17)
DX: N20.2 Calculus of kidney with calculus of ureter (principal); Z87.442 Personal history of urinary calculi; Z98.890 Other specified postprocedural states
CPT/HCPCS: 36415; 74176-TC; 80053; 81003; 81015; 83605; 85025; 87086; 99282-25; J7030

== ENCOUNTER 2017-12-25 12:42 | Emergency (ER) | payer BC ==
[2017-12-25 12:56] VITALS: BP 150/101; PULSE 64; TEMP 98; BMI 27.6
[2017-12-25 13:33] LABS: PH,URINE 5.5 (4.5-8); URINE APPEARANCE Clear; URINE BILIRUBIN Negative (NEGATIVE); URINE COLOR Amber; URINE GLUCOSE (UA) Negative (NEGATIVE); URINE KETONE Negative (NEGATIVE); URINE LEUK ESTERASE Negative (NEGATIVE); URINE NITRITE Negative (NEGATIVE); URINE PROTEIN Negative (NEGATIVE); URINE UROBILINOGEN 0.2 (0.2-1.0)
[2017-12-25 13:39] LABS: HEMATOCRIT 47.3 % (35.4-49); HEMOGLOBIN 15.5 GM/dl (11.7-16.9); MCH 32.4 pg (25.7-33.7); MCHC 32.8 g/dl (32.0-35.9); MEAN CELL VOLUME 98.6 fl (80-96); MEAN PLT VOLUME 7.6 fl (7.5-11.1); PLATELET COUNT 182 K/MM3 (134-434); RBC 4.79 M/mm3 (4.00-5.60); RDW 12.3 % (11.9-15.9)
[2017-12-25 13:43] LABS: INR 0.95 (0.82-1.09); PROTHROMBIN TIME (PATIENT) 10.7 SEC (10.2-13.0)
[2017-12-25 13:47] LABS: ALBUMIN 4.2 g/dl (3.5-5.0); ALK PHOS 67 U/L (32-92); ANION GAP 10 MMOL/L (8-16); BILIRUBIN,TOTAL 2.2 mg/dl (0.2-1.0); BLOOD UREA NITROGEN 23 mg/dl (7-18); CALCIUM 9.2 mg/dl (8.4-10.2); CHLORIDE 105 mmol/L (98-107); CO2 24 mmol/L (22-28); CREATININE 1.2 mg/dl (0.6-1.3); GLUCOSE,RANDOM 98 mg/dl (74-106); SGOT/AST 23 U/L (10-42); SGPT/ALT 22 U/L (10-40); SODIUM 139 mmol/L (136-145); TOT PROT 6.9 g/dl (6.4-8.3)
--- NOTE | 2017-12-25 14:02 | PDOC ---
History of Present Illness - General Chief Complaint: Injury Stated Complaint: LEFT CHEST WALL PAIN Time Seen by Provider: 12/25/17 12:56 History Source: Patient Exam Limitations: No Limitations - History of Present Illness Initial Comments: 12/25/17 14:02 Patient is a 62M with history of nephrolithiasis, cholecystectomy, and b/l inguinal repair here today complaining of left flank pain that started yesterday. Patient states that one week ago he fell from standing and landed on a piece of steel. He states that he had a bruise there, but the pain didn't really increase until yesterday. Patient reports being treated for a UTI with cipro and passing "ashok" urine with one stone. Denies hematuria. Denies suprapubic pain. Denies fevers, chills, nausea, vomiting. Denies LOC, headache, neck pain, chest pain, and shortness of breath. Past History - Past Medical History Allergies/Adverse Reactions: Allergies Allergy/AdvReac Type Severity Reaction Status Date / Time No Known Allergies Allergy Verified 12/25/17 12:43 Home Medications: Ambulatory Orders Allopurinol [Zyloprim -] 0 mg PO DAILY 05/18/17 Ciprofloxacin [Cipro (Restricted To Id)] 500 mg PO Q12H 12/25/17 Anemia: No Asthma: No Cancer: No Cardiac Disorders: No CVA: No COPD: No CHF: No DVT: No Dementia: No Diabetes: No GI Disorders: No Disorders: No HTN: No Hypercholesterolemia: No Kidney Stones: Yes Liver Disease: No Seizures: No Thyroid Disease: No Other medical history: GOUT - Surgical History Abdominal Surgery: Yes (HIATAL HERNIA REPAIR) Cholecystectomy: Yes - Suicide/Smoking/Psychosocial Hx Smoking Status: No Smoking History: Never smoked Have you smoked in the past 12 months: No Number of Cigarettes Smoked Daily: 0 If you are a former smoker, when did you quit?: STOPPED 30YEARS AGO Information on smoking cessation initiated: No Hx Alcohol Use: No Drug/Substance Use Hx: No Substance Use Type: None Hx Substance Use Treatment: No Review of Systems - Review of Systems Comments:: 12/25/17 14:09 GENERAL/CONSTITUTIONAL: No fever or chills. No weakness. HEAD, EYES, EARS, NOSE AND THROAT: No change in vision. No sore throat. CARDIOVASCULAR: No chest pain or shortness of breath RESPIRATORY: No cough, wheezing, or hemoptysis. GASTROINTESTINAL: No nausea, vomiting, diarrhea or constipation. GENITOURINARY: No dysuria, frequency, or change in urination. MUSCULOSKELETAL: No joint or muscle swelling or pain. No neck or back pain. + left flank pain SKIN: No rash NEUROLOGIC: No headache, vertigo, loss of consciousness, or change in strength/ sensation. ENDOCRINE: No increased thirst. No abnormal weight change HEMATOLOGIC/LYMPHATIC: No anemia, easy bleeding, or history of blood clots. ALLERGIC/IMMUNOLOGIC: No hives or skin allergy. *Physical Exam - Vital Signs Last Vital Signs Temp Pulse Resp BP Pulse Ox 98 F 64 20 150/101 98 12/25/17 12:43 12/25/17 12:43 12/25/17 12:43 12/25/17 12:43 12/25/17 12:43 - Physical Exam Comments: 12/25/17 14:10 GENERAL: Awake, alert, and fully oriented, in no acute distress HEAD: No signs of trauma, normocephalic, atraumatic EYES: PERRLA, EOMI, sclera anicteric, conjunctiva clear ENT: Auricles normal inspection, hearing grossly normal, nares patent, oropharynx clear without exudates. Moist mucosa NECK: Normal ROM, supple, no lymphadenopathy, JVD, or masses LUNGS: No distress, speaks full sentences, clear to auscultation bilaterally HEART: Regular rate and rhythm, normal S1 and S2, no murmurs, rubs or gallops, peripheral pulses normal and equal bilaterally. ABDOMEN: Soft, nontender, normoactive bowel sounds, brusing in LUQ. No guarding , no rebound. No masses BACK/CHEST: Tender along lower rib on left side, no midline back tenderness EXTREMITIES: Normal inspection, Normal range of motion, no edema. No clubbing or cyanosis. NEUROLOGICAL: Cranial nerves II through XII grossly intact. Normal speech, normal gait, no focal sensorimotor deficits SKIN: Warm, Dry, normal turgor, no rashes or lesions noted. ED Treatment Course - LABORATORY CBC & Chemistry Diagram: 12/25/17 13:30 12/25/17 13:30 - ADDITIONAL ORDERS Additional order review: Laboratory Results 12/25/17 12/25/17 12/25/17 13:30 13:30 13:30 PT with INR 10.7 INR 0.95 L Sodium 139 Potassium 4.0 Chloride 105 Carbon Dioxide 24 Anion Gap 10 BUN 23 H Creatinine 1.2 Creat Clearance w eGFR > 60 Random Glucose 98 Calcium 9.2 Total Bilirubin 2.2 H AST 23 ALT 22 Alkaline Phosphatase 67 Total Protein 6.9 Albumin 4.2 Urine Color Bri Urine Appearance Clear Urine pH 5.5 Ur Specific [place] 1.025 Urine Protein Negative Urine Glucose (UA) Negative Urine Ketones Negative Urine Blood Negative Urine Nitrite Negative Urine Bilirubin Negative Urine Urobilinogen 0.2 Ur Leukocyte Esterase Negative 12/25/17 13:30 RBC 4.79 MCV 98.6 H MCHC 32.8 RDW 12.3 MPV 7.6 - RADIOLOGY Radiology Studies Ordered: Category Date Time Status ABDOMEN & PELVIS CT WITH CONTR [CT] Stat CT Scan 12/25/17 13:[address] WITH CONTRAST [CT] Stat CT Scan 12/25/17 13:17 Ordered Medical Decision Making - Medical Decision Making 12/25/17 14:12 Patient is 62M with history of nephrolithiasis, inguinal hernia repairs, cholecystectomy here today with left flank pain. Vital signs normal and stable. DDx is confounded by recent trauma, includes, but is not limited to: nephrolithiasis, splenic hematoma, rib fracture. Believe patient most likely has kidney stone, but will evaluate with CT abd/pelvis/chest to rule out damage to spleen give this is most dangerous diagnosis on differential. 12/25/17 17:00 CBC, CMP reassuring. UA shows no hematuria. CT shows old rib fracture in posterior 10th rib, not where patient currently has pain. Shows no acute intra-abdominal pathology. Will discharge with primary care follow up. *DC/Admit/Observation/Transfer Diagnosis at time of Disposition: Bruised ribs, Back pain - Discharge Dispostion Disposition: HOME Condition at time of disposition: Good Decision to Admit order: No - Referrals - Patient Instructions Printed Discharge Instructions: DI for Thoracic Back Pain, DI for Rib Contusion Additional Instructions: Please follow up with your primary care physician this week. Please return to the ED if you have any new, worsening or concerning symptoms. The lidocaine patch prescription is available over the counter as well if your insurance does not cover it. - Post Discharge Activity
--- NOTE | 2017-12-25 14:18 | PDOC ---
Attending Attestation - Resident Resident Name: Joe Odell - ED Attending Attestation I have performed the following: I have examined & evaluated the patient, The case was reviewed & discussed with the resident, I agree w/resident's findings & plan - HPI HPI: 12/25/17 14:15 Allen 62-year-old male, with a significant past medical history of gout, cholecystectomy, bilateral inguinal hernia, and renal stones presenting with left flank pain and left anterior chest wall pain. Left flank/back pain since last night, a/w nausea and vomiting. ~2 days ago experienced ashok urine and passage of stone. No fevers ~1 week ago, s/p mechanical fall [place] [employer] [place] landing on his left chest. No LOC or head injury or amnesia. +mild healing bruising to his chest wall. No sob or respiratory distress. PCP Dr. Hawley 12/25/17 14:16 - Physicial Exam PE: 12/25/17 14:15 NAD, well appearing, MMM, nl conjunctiva, anicteric; neck supple. lungs clear, RRR, +left anterior chest wall bruising and tenderness to palp, no crepitus. abdomen soft nontender. +left CVAT. BURTON x4, no focal neuro deficits. No peripheral edema. normal color for ethnicity, WWP. - Medical Decision Making 12/25/17 14:16 Allen 62-year-old male, with a significant past medical history of gout, cholecystectomy, bilateral inguinal hernia, and renal stones presenting with left flank pain and left anterior chest wall pain. DDx. chest wall contusion, pulmonary contusion, rib fracture, PTX, effusion, kidney stone, retained ureterolithiasis, UTI, splenic injury, abdominal wall contusion, back strain. vitals wnl, stable. labs and lytes wnl, UA neg for infection or blood. may have passed kidney stone, and residual CVAT. will perform CT a/p to ensure no intra abdominal injury post fall, delayed presentation and r/o ureterolithiasis. CT chest to r/o occult rib fx/hemothorax given persistent sx despite incident [address] results: no evidence of acute ureterolithiasis, no intra abdominal injuries or pathology. old left rib fx in posterior arch, not where he is tender, so no other evidence of acute fx. Given IVF to flush out contrast and hydrate. tylenol with pain relief. topical lidoderm patch. dispo: DC in stable condition. I discussed the physical exam findings, ancillary test results and final diagnoses with the patient. I answered all of the patient's questions. The patient was satisfied with the care received and felt comfortable with the discharge plan and treatment plan. The patient will return to the Emergency Department with any new, persistent or worsening symptoms. Dx chest wall contusion and back pain. 12/25/17 17:00
[2017-12-25] MEDS ORDERED: SODIUM CHLORIDE 0.9% 500 ML INFUS.BAG IV ONE (16:04)
[2017-12-25] MEDS ORDERED: ACETAMINOPHEN 325 MG TABLET (FP) PO ONE (16:04)
[2017-12-25] MEDS ORDERED: ACETAMINOPHEN 325 MG TABLET (FP) ONE (16:24)
== END 2017-12-25 17:10 | disposition home or self-care (01) ==
LOC: FER 12:42
PROC: 3E0337Z Introduction of Electrolytic and Water Balance Substance into Peripheral Vein, Percutaneous Approach (ICD-10-PCS; principal; 2017-12-25)
DX: R07.81 Pleurodynia (principal); M54.9 Dorsalgia, unspecified; W17.89XA Other fall from one level to another, initial encounter; Y93.89 Activity, other specified; Y92.89 Other specified places as the place of occurrence of the external cause
CPT/HCPCS: 36415; 71260-TC; 74177-TC; 80053; 81003; 85027; 85610; 87086; 99282-25

== ENCOUNTER 2017-12-30 12:36 | Emergency (ER) | payer BC ==
[2017-12-30] MEDS ORDERED: SODIUM CHLORIDE 1,000 ML IV STA (12:40)
[2017-12-30] MEDS ORDERED: ACETAMINOPHEN 1000 MG/100 ML VIAL (NON FORMULARY) IVPB ONE (12:40)
[2017-12-30] MEDS ORDERED: ONDANSETRON 4 MG/2 ML VIAL IVPB ONE (12:40)
[2017-12-30 12:45] VITALS: TEMP 97.6; BMI 25.8
--- NOTE | 2017-12-30 12:54 | PDOC ---
History of Present Illness - General Chief Complaint: Pain, Acute Stated Complaint: llq pain Time Seen by Provider: 12/30/17 12:39 History Source: Patient Exam Limitations: No Limitations - History of Present Illness Initial Comments: 12/30/17 12:39 This is a 62 YOM with h/o recent UTI (tx with Levaquin for the past 2 weeks), multiple kidney stones, and HTN who p/w LLQ pain, nausea, NBNB vomiting, non- black non-bloody but a bit light-colored loose diarrhea today, and sensation of inability to completely empty his bladder for the past two hours. He was sitting and driving his children to school at the onset 2 hours ago, doing nothing strenuous. The pain started abruptly and is now 10/10, constant, sharp, in the low LLQ and radiating to the left testicle and to the left flank. He denies f/c, constipation, radiation down the leg(s), midline back pain, chest pain, SOB, testicular swelling or skin changes, penile discharge or lesions, or other symptoms. Past History - Past Medical History Allergies/Adverse Reactions: Allergies Allergy/AdvReac Type Severity Reaction Status Date / Time No Known Allergies Allergy Verified 12/25/17 12:43 Home Medications: Ambulatory Orders Allopurinol [Zyloprim -] 0 mg PO DAILY 05/18/17 Naproxen 250 mg PO BID #10 tablet 12/30/17 Anemia: No Asthma: No Cancer: No Cardiac Disorders: No CVA: No COPD: No CHF: No DVT: No Dementia: No Diabetes: No GI Disorders: No Disorders: No HTN: No Hypercholesterolemia: No Kidney Stones: Yes Liver Disease: No Seizures: No Thyroid Disease: No - Surgical History Abdominal Surgery: Yes (HIATAL HERNIA REPAIR) Cholecystectomy: Yes - Suicide/Smoking/Psychosocial Hx Smoking Status: No Smoking History: Never smoked Have you smoked in the past 12 months: No Number of Cigarettes Smoked Daily: 0 If you are a former smoker, when did you quit?: STOPPED 30YEARS AGO Hx Alcohol Use: No Drug/Substance Use Hx: No Substance Use Type: None Hx Substance Use Treatment: No Abd/GI Specific PMHX - Complaint Specific PMHX Colitis: No Diverticulitis: No Gall Bladder Disease: Yes GERD: No Hepatitis: No Irritable Bowel Synd (IBS): No Pancreatitis: No GI Ulcer Disease: No Review of Systems - Review of Systems Able to Perform ROS?: Yes Constitutional: No: Chills, Fever, Unexplained wgt Loss HEENTM: No: Nose Congestion, Throat Pain Respiratory: No: Cough, Shortness of Breath Cardiac (ROS): No: Chest Pain, Palpitations ABD/GI: Yes: Diarrhea, Nausea, Other (LLQ abdominal pain). No: Constipated, Vomiting : Yes: Flank Pain (left), Urgency, Testicular Pain. No: Burning, Dysuria, Discharge, Hematuria, Incontinence, Testicular Mass, Testicular Swelling, Lesions Musculoskeletal: No: Back Pain, Neck Pain Integumentary: No: Bruising, Rash Neurological: No: Headache, Numbness, Tingling, Weakness, Dizziness Endocrine: No: Unexplained Weight Gain, Unexplained Weight Loss *Physical Exam - Physical Exam General Appearance: Yes: Nourished, Appropriately Dressed, Mild Distress, Other (uncomfortable appearing but pleasant adult male answering questions appropriately) HEENT: positive: EOMI, ARELIS, Normal Voice, Hearing Grossly Normal. negative: Scleral Icterus (R), Scleral Icterus (L), Nasal Congestion Neck: positive: Trachea midline, Supple. negative: Tender, Rigid Respiratory/Chest: positive: Lungs Clear, Normal Breath Sounds. negative: Respiratory Distress, Crackles, Rhonchi, Stridor, Wheezing Cardiovascular: positive: Regular Rhythm, Regular Rate, S1, S2. negative: Edema , JVD, Murmur Gastrointestinal/Abdominal: positive: Normal Bowel Sounds, Tender (moderate inferior LLQ ttp and left inguinal ttp with milder LUQ and suprapubic ttp), Soft. negative: Organomegaly, Pulsatile Mass, Guarding, Hernia Male Genitalia: positive: normal genitalia, epididymus tender (left), other ( uncircumcised, cremasteric reflexes intact bilaterally). negative: discharge, testicular tenderness, inguinal hernia, hernia Musculoskeletal: positive: Normal Inspection. negative: Decreased Range of Motion, Vertebral Tenderness Extremity: positive: Normal Capillary Refill, Normal Inspection, Normal Range of Motion. negative: Tender, Cyanosis Integumentary: positive: Normal Color, Dry, Warm, Other (no scrotal skin changes ). 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 ED Treatment Course - LABORATORY CBC & Chemistry Diagram: 12/30/17 12:55 12/30/17 12:45 Medical Decision Making - Medical Decision Making 12/30/17 13:07 Adult male Pt p/w left-sided abdominal pain. Initial Vital Signs Temp Pulse Resp BP Pulse Ox 97.6 F 59 L 18 175/86 99 12/30/17 12:36 12/30/17 12:36 12/30/17 12:36 12/30/17 12:36 12/30/17 12:36 Exam: As noted in Physical Exam section. DDX IBNLT: renal colic, obstructive uropathy, UTI/pyelonephritis, testicular/ appendiceal torsion, epididymitis, orchitis, prostatitis, hernia, urethritis, diverticulitis wwo abscess or perforation, colitis, AAA/AD, malignancy, gastritis, PUD, ACS, SBO, bowel ischemia, bowel perforation, musculoskeletal, constipation, gastroenteritis, etc. W/U ordered: CBCD CMP Coags UA UCx US Scrotum & Contents, CT A/P without contrast TX ordered: IVF Ofirmev Morphine Zofran US Scrotum and contents: Nothing acute. CT: Laboratory Tests 12/30/17 12/30/17 12/30/17 12:45 12:45 12:55 WBC 5.2 RBC 4.56 Hgb 14.9 Hct 44.8 MCV 98.4 H MCH 32.8 MCHC 33.3 RDW 12.6 Plt Count 154 MPV 8.4 D Absolute Neuts (auto) 3.5 Neutrophils % 67.3 Lymphocytes % 20.5 Monocytes % 10.2 Eosinophils % 1.3 Basophils % 0.7 PT with INR INR Sodium 136 Potassium 3.8 Chloride 102 Carbon Dioxide 25 Anion Gap 9 BUN 21 H Creatinine 1.3 Creat Clearance w eGFR 55.75 Random Glucose 121 H D Calcium 8.8 Total Bilirubin 1.7 H AST 22 ALT 21 Alkaline Phosphatase 74 Total Protein 6.5 Albumin 4.0 Lipase 111 Urine Color Bri Urine Appearance Clear Urine pH 5.0 Ur Specific [place] > 1.030 H Urine Protein Trace Urine Glucose (UA) Negative Urine Ketones Negative Urine Blood 3+ H Urine Nitrite Negative Urine Bilirubin Negative Urine Urobilinogen 0.2 Ur Leukocyte Esterase Negative Urine RBC >100 Urine WBC 0-3 Ur Epithelial Cells Few 12/30/17 13:03 WBC RBC Hgb Hct MCV MCH MCHC RDW Plt Count MPV Absolute Neuts (auto) Neutrophils % Lymphocytes % Monocytes % Eosinophils % Basophils % PT with INR 10.9 INR 0.97 Sodium Potassium Chloride Carbon Dioxide Anion Gap BUN Creatinine Creat Clearance w eGFR Random Glucose Calcium Total Bilirubin AST ALT Alkaline Phosphatase Total Protein Albumin Lipase Urine Color Urine Appearance Urine pH Ur Specific [place] Urine Protein Urine Glucose (UA) Urine Ketones Urine Blood Urine Nitrite Urine Bilirubin Urine Urobilinogen Ur Leukocyte Esterase Urine RBC Urine WBC Ur Epithelial Cells Reassessment: Repeat VS: DISCHARGE The Pt has gotten significant relief of symptoms with ED medications. Workup is not concerning for emergency-level pathology at this time. The Pt is appropriate for discharge with close outpatient follow up. They are comfortable with this plan and will follow up with their primary care provider in 1-3 days. Specific return precautions are discussed and they will come back to the ER if necessary. *DC/Admit/Observation/Transfer Diagnosis at time of Disposition: Ureterolithiasis, Polycystic kidney, Hyperbilirubinemia - Discharge Dispostion Disposition: HOME Condition at time of disposition: Improved Decision to Admit order: No - Prescriptions Prescriptions: Naproxen 250 mg PO BID #10 tablet - Referrals Referrals: Edgardo Mendoza MD [Staff Physician] - - Patient Instructions Printed Discharge Instructions: DI for Kidney Stones Additional Instructions: You were seen in the ER for a kidney stone that is trying to pass. We did laboratory tests on your urine and found blood in the urine, which is common with kidney stones. We also did blood laboratories, a testicular/scrotal ultrasound, and an abdominal/pelvic CT scan, which pointed towards kidney stone as the cause of your pain. We did not see signs of an infection in the urine or on your vital signs. We gave you medications and IV fluids which helped your symptoms. After our assessment, we do not believe you are having a medical emergency at this time, and we believe you are safe to go home. 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 We are giving you referral information for a urologist in case you need a new one. Please take over the counter pain medications for pain, following the instructions on the medication label. Please follow up with your primary care provider in 1-3 days. Call their clinic [facility], tell them you were seen in the ER , and tell them you need an appointment. Please come back to the ER at any time , 24 hours a day, for any new or worsening symptoms, like worsening pain unrelieved with medications, fever, inability to urinate, burning on urination, testicular pain or swelling, or other symptoms. If you are having severe or life threatening symptoms, or symptoms that make it unsafe to drive or have someone drive you, please call 911. - Post Discharge Activity
[2017-12-30] MEDS ORDERED: ONDANSETRON 4 MG/2 ML VIAL ONE (12:55)
[2017-12-30] MEDS ORDERED: ACETAMINOPHEN INJECTION 100 ML IVPB ONE (12:55)
[2017-12-30] MEDS ORDERED: morphine CARPU-JECT 4 MG/1 ML DISP.SYRIN IVPUSH ONE (13:06)
[2017-12-30] MEDS ORDERED: morphine SULFATE 4 MG/ML VIAL ONE (13:07)
[2017-12-30 13:33] LABS: BASO % 0.7 % (0-2.0); EOS % 1.3 % (0-4.5); HEMATOCRIT 44.8 % (35.4-49); HEMOGLOBIN 14.9 GM/dl (11.7-16.9); LYMPH % 20.5 % (8-40); MCH 32.8 pg (25.7-33.7); MCHC 33.3 g/dl (32.0-35.9); MEAN CELL VOLUME 98.4 fl (80-96); MEAN PLT VOLUME 8.4 fl (7.5-11.1); MONO % 10.2 % (3.8-10.2); NEUT % 67.3 % (42.8-82.8); PLATELET COUNT 154 K/MM3 (134-434); RBC 4.56 M/mm3 (4.00-5.60); RDW 12.6 % (11.9-15.9); WHITE BLOOD COUNT 5.2 K/mm3 (4.0-10.8)
[2017-12-30 13:38] LABS: ALK PHOS 74 U/L (32-92); ANION GAP 9 MMOL/L (8-16); BILIRUBIN,TOTAL 1.7 mg/dl (0.2-1.0); BLOOD UREA NITROGEN 21 mg/dl (7-18); CALCIUM 8.8 mg/dl (8.4-10.2); CHLORIDE 102 mmol/L (98-107); CO2 25 mmol/L (22-28); CREATININE 1.3 mg/dl (0.6-1.3); GLUCOSE,RANDOM 121 mg/dl (74-106); POTASSIUM 3.8 mmol/L (3.5-5.1); SGOT/AST 22 U/L (10-42); SGPT/ALT 21 U/L (10-40); SODIUM 136 mmol/L (136-145); TOT PROT 6.5 g/dl (6.4-8.3)
[2017-12-30 13:39] LABS: INR 0.97 (0.82-1.09); PROTHROMBIN TIME (PATIENT) 10.9 SEC (10.2-13.0)
[2017-12-30 13:50] LABS: URINE APPEARANCE Clear; URINE BILIRUBIN Negative (NEGATIVE); URINE COLOR Amber; URINE GLUCOSE (UA) Negative (NEGATIVE); URINE KETONE Negative (NEGATIVE); URINE LEUK ESTERASE Negative (NEGATIVE); URINE NITRITE Negative (NEGATIVE); URINE PROTEIN Trace (NEGATIVE); URINE UROBILINOGEN 0.2 (0.2-1.0)
--- NOTE | 2017-12-30 13:59 | PDOC ---
Attending Attestation - Resident Resident Name: Jaimes,Daisy - ED Attending Attestation I have performed the following: I have examined & evaluated the patient, The case was reviewed & discussed with the resident, I agree w/resident's findings & plan, Exceptions are as noted - HPI HPI: 12/30/17 14:00 62-year-old male with history of nephrolithiasis, Hypertension and urinary tract infections presents with left testicular pain and left lower quadrant pain since this morning. The patient was here recently several days ago for a fall and left flank pain. Patient had workup performed which demonstrated an old rib fracture and the patient was discharged. He reports that this is a completely separate issue and woke up with urinary hesitance, left lower quadrant pain and some loose stooling. No fevers, nausea, vomiting. Patient also reports some very mild left testicular pain but no swelling or edema. Patient denies flank pain. Came to the ER for further evaluation. - Physicial Exam PE: 12/30/17 14:03 GENERAL: [The patient is awake, alert, and fully oriented, in no acute distress. ] HEAD: [Normal with no signs of trauma.] EYES: [extraocular movements intact, sclera anicteric, conjunctiva clear.] ENT: [Ears normal, nares patent Moist mucous membranes.] NECK: [Normal range of motion, supple] ABDOMEN: [Soft, No guarding, no rebound. No masses.] + TTP LLQ. : Uncircumcized penis with no lesions or drainage. No scrotal edema or swelling appreciated. Cremasteric reflex intact. Mild left sided testicular tenderness to palpation. EXTREMITIES: [Normal range of motion, no edema. No clubbing or cyanosis. No cords, erythema, or tenderness.] NEUROLOGICAL: [Cranial nerves II through XII grossly intact. Normal speech, normal gait.] PSYCH: [Normal mood, normal affect.] SKIN: [Warm, Dry, normal turgor, no rashes or lesions noted.] - Medical Decision Making 12/30/17 14:05 Vital Signs Temp Pulse Resp BP Pulse Ox 97.6 F 59 L 18 175/86 99 12/30/17 12:36 12/30/17 12:36 12/30/17 12:36 12/30/17 12:36 12/30/17 12:36 Left lower quadrant pain differential includes diverticulitis, colitis, renal colic, pyelonephritis, cystitis, epididymitis, orchitis. I have very low suspicion for testicular torsion. We'll obtain labs, urinalysis, CAT scan and scrotal ultrasound and reassess. 12/30/17 14:49 CBC, BMP 12/30/17 12:55 12/30/17 12:45 CMP Sodium 136 mmol/L (136-145) 12/30/17 12:45 Potassium 3.8 mmol/L (3.5-5.1) 12/30/17 12:45 Chloride 102 mmol/L (98-107) 12/30/17 12:45 Carbon Dioxide 25 mmol/L (22-28) 12/30/17 12:45 Anion Gap 9 MMOL/L (8-16) 12/30/17 12:45 BUN 21 mg/dl (7-18) H 12/30/17 12:45 Creatinine 1.3 mg/dl (0.6-1.3) 12/30/17 12:45 Creat Clearance w eGFR 55.75 (>60) 12/30/17 12:45 Random Glucose 121 mg/dl (74-106) H D 12/30/17 12:45 Calcium 8.8 mg/dl (8.4-10.2) 12/30/17 12:45 Total Bilirubin 1.7 mg/dl (0.2-1.0) H 12/30/17 12:45 AST 22 U/L (10-42) 12/30/17 12:45 ALT 21 U/L (10-40) 12/30/17 12:45 Alkaline Phosphatase 74 U/L (32-92) 12/30/17 12:45 Total Protein 6.5 g/dl (6.4-8.3) 12/30/17 12:45 Albumin 4.0 g/dl (3.5-5.0) 12/30/17 12:45 Lipase 111 U/L (73-393) 12/30/17 12:45 Urine Test Results Urine Color Bri 12/30/17 12:45 Urine Appearance Clear 12/30/17 12:45 Urine pH 5.0 (4.5-8) 12/30/17 12:45 Ur Specific [place] > 1.030 (1.005-1.025) H 12/30/17 12:45 Urine Protein Trace (NEGATIVE) 12/30/17 12:45 Urine Glucose (UA) Negative (NEGATIVE) 12/30/17 12:45 Urine Ketones Negative (NEGATIVE) 12/30/17 12:45 Urine Blood 3+ (NEGATIVE) H 12/30/17 12:45 Urine Nitrite Negative (NEGATIVE) 12/30/17 12:45 Urine Bilirubin Negative (NEGATIVE) 12/30/17 12:45 Ur Leukocyte Esterase Negative (NEGATIVE) 12/30/17 12:45 Urine RBC >100 /hpf (0-3) 12/30/17 12:45 Urine WBC 0-3 (0-2) 12/30/17 12:45 Ur Epithelial Cells Few /HPF 12/30/17 12:45 Scrotal ultrasound reviewed. No acute findings. No torsion. 12/30/17 15:20 CT demonstrates a recently passed kidney stone in bladder. Pt's symptoms are likely secondary to kidney stones. Supportive care. Follow up with urologist. Discharge diagnosis: kidney stones. Heart Score/ECG Review #1 ECG reviewed & interpreted by me at: 13:20 12/30/17 13:35 NSR 53, no std/judd, normal axis, normal intervals, QTC 442 msec
[2017-12-30 14:06] LABS: EPI CELLS FEW /HPF; URINE RBC >100 /hpf (0-3); URINE WBC 0-3 (0-2)
[2017-12-30 14:31] LABS: LIPASE 111 U/L (73-393)
[2017-12-30 14:43] VITALS: BP 137/65; PULSE 58
--- NOTE | 2017-12-31 09:11 | EKG ---
Test Reason : Blood Pressure : / mmHG Vent. Rate : 053 BPM Atrial Rate : 053 BPM P-R Int : 168 ms QRS Dur : 098 ms QT Int : 472 ms P-R-T Axes : 061 046 042 degrees QTc Int : 442 ms SINUS BRADYCARDIA NON-SPECIFIC INTRA-VENTRICULAR CONDUCTION DELAY Confirmed by FABRICE LANDIS MD ([id number]) on 12/31/2017 9:11:25 AM Referred By: BRANDY PERRIN Confirmed By:FABRICE LANDIS MD
== END 2017-12-30 15:45 | disposition home or self-care (01) ==
LOC: FER 12:36
PROC: 3E033NZ Introduction of Analgesics, Hypnotics, Sedatives into Peripheral Vein, Percutaneous Approach (ICD-10-PCS; principal; 2017-12-30)
PROC: 3E033GC Introduction of Other Therapeutic Substance into Peripheral Vein, Percutaneous Approach (ICD-10-PCS; 2017-12-30)
PROC: 3E0337Z Introduction of Electrolytic and Water Balance Substance into Peripheral Vein, Percutaneous Approach (ICD-10-PCS; 2017-12-30)
DX: N20.1 Calculus of ureter (principal); Z87.442 Personal history of urinary calculi; E80.6 Other disorders of bilirubin metabolism; Q61.3 Polycystic kidney, unspecified; I10 Essential (primary) hypertension; Z87.891 Personal history of nicotine dependence
CPT/HCPCS: 36415; 74176-TC; 76870-TC; 80053; 81003; 81015; 83690; 85025; 85610; 87086; 93005; 99284-25; J0131; J7030

== ENCOUNTER 2018-04-07 18:53 | Emergency (ER) | payer BC ==
[2018-04-07 19:06] VITALS: BP 136/89; PULSE 74; TEMP 98.7; BMI 26.6
--- NOTE | 2018-04-07 19:29 | PDOC ---
History of Present Illness - General Chief Complaint: Pain Stated Complaint: MD ABDOMINAL PAIN NAUSEA,VOMITING,DIARRHEA Time Seen by Provider: 04/07/18 19:14 Past History - Past Medical History Allergies/Adverse Reactions: Allergies Allergy/AdvReac Type Severity Reaction Status Date / Time No Known Allergies Allergy Verified 04/07/18 18:55 Home Medications: Ambulatory Orders Allopurinol [Zyloprim -] 0 mg PO DAILY 05/18/17 Anemia: No Asthma: No Cancer: No Cardiac Disorders: No CVA: No COPD: No CHF: No DVT: No Dementia: No Diabetes: No GI Disorders: No Disorders: No HTN: No Hypercholesterolemia: No Kidney Stones: Yes Liver Disease: No Seizures: No Thyroid Disease: No Other medical history: GOUT - Surgical History Abdominal Surgery: Yes (HIATAL HERNIA REPAIR) Cholecystectomy: Yes - Suicide/Smoking/Psychosocial Hx Smoking Status: No Smoking History: Former smoker Have you smoked in the past 12 months: No Number of Cigarettes Smoked Daily: 0 If you are a former smoker, when did you quit?: 30 YEARS Information on smoking cessation initiated: No Hx Alcohol Use: Yes (SOCIAL) Drug/Substance Use Hx: No Substance Use Type: None Hx Substance Use Treatment: No *Physical Exam - Vital Signs Last Vital Signs Temp Pulse Resp BP Pulse Ox 98.7 F 74 16 136/89 98 04/07/18 18:54 04/07/18 18:54 04/07/18 18:54 04/07/18 18:54 04/07/18 18:54 Moderate Sedation - Procedure Monitoring Vital Signs: Procedure Monitoring Vital Signs Temperature 98.7 F 04/07/18 18:54 Pulse Rate 74 04/07/18 18:54 Respiratory Rate 16 04/07/18 18:54 Blood Pressure 136/89 04/07/18 18:54 O2 Sat by Pulse Oximetry (%) 98 04/07/18 18:54 *DC/Admit/Observation/Transfer - Discharge Dispostion Condition at time of disposition: Stable - Referrals - Patient Instructions - Post Discharge Activity
[2018-04-07] MEDS ORDERED: SODIUM CHLORIDE 1,000 ML IV ONE (19:30)
[2018-04-07] MEDS ORDERED: ONDANSETRON 4 MG/2 ML VIAL IVPB ONE (19:30)
--- NOTE | 2018-04-07 19:30 | PDOC ---
History of Present Illness - History of Present Illness Initial Comments: 04/07/18 19:44 The patient is a 63 year old male, who presents to the emergency department with 1 day of generalized abdominal pain, nausea, vomiting (non bloody, non bilious) and diarrhea (non bloody). The patient states yesterday he experienced the generalized abdominal pain for the 1st time. The patient states before going to be he noted a subjective fever and chills. The patient states then today he experienced 7-8 episodes of vomiting (non bloody, non bilious) and multiple episodes of diarrhea (non bloody). The patient states his last episode of emesis was 45 minutes ago. The patient denies chest pain, shortness of breath, headache and dizziness. Denies dysuria, frequency, urgency and hematuria. PAST MEDICAL HISTORY: Nephrolithiasis, Hypertension, Urinary tract infections PAST SURGICAL HISTORY: no significant history FAMILY HISTORY: no pertinent history SOCIAL HISTORY: Pt lives with family and is employed. MEDICATIONS: reviewed ALLERGIES: As per nursing notes Review of Systems General: No fevers or chills, no weakness, no weight loss HEENT: No change in vision. No sore throat,. No ear pain CardioVascular: No chest pain or shortness of breath Respiratory:No cough, or wheezing. Gastrointestinal: (+) Generalized abdominal pain. (+) Nausea. (+) Vomiting. (+ ) Diarrhea. No constipation, No rectal bleeding. Genitourinary: No dysuria, hematuria, or frequency Musculoskeletal: No joint or muscle pain or swelling Neurologic: No headache, vertigo, dizziness or loss of consciousness Psychiatric: nor depression Skin: No rashes or easy bruising Endocrine: no increased thirst or abnormal weight change Allergic: no skin or latex allergy All other systems reviewed and normal Physical Exam General: Well-nourished well-developed individual, no acute distress HEENT: Throat: Normal, tonsils normal, no erythema or exudate Neck: Supple, no meningeal signs, no lymphadenopathy Eyes::Pupils equal reactive and round, extraocular motion intact Chest: Nontender to palpation Cardiac: S1-S2 normal, regular rate and rhythm, no murmurs rubs or gallops Respiratory: Lungs clear to auscultation bilateral Abdomen: (+) Abdomen diffusely tender to palpation. No guarding or rebound. Bowel sounds are increased. Soft, nondistended. Extremities: Warm, dry, no cyanosis, clubbing, or edema Skin: No rashes Neuro: Alert and oriented x3, nonfocal exam, grossly intact, normal gait Psych: Normal mood and affect <Edi Souza - Last Filed: 04/07/18 19:44> - General History Source: Patient Exam Limitations: No Limitations - History of Present Illness Initial Comments: 04/07/18 19:48 A portion of this note was documented by scribe services under my direction. I have reviewed the details of the note, within reason, and agree with the documentation with the following case summary and management plan written by me. Patient treated in the ED. Nursing notes are reviewed and incorporated into the medical decision-making. Vital signs reviewed. Assessment and plan: This is a 63-year-old male who comes in complaining of one day of nausea vomiting diarrhea and generalized abdominal pain. On my exam patient did have diffuse abdominal pain and his mucous membranes were dry. Workup initiated including CBC, comp, lipase, EKG, cardiac enzymes. Patient will be hydrated with IV fluid and given Zofran for the nausea 04/07/18 19:49 EKG shows normal sinus rhythm at a rate of 63, possible old septal infarct no acute ST-T wave changes 04/07/18 20:28 Reevaluation patient feels better no further vomiting in the ED patient able to tolerate by mouth's Patient's white count was 3.0 most likely secondary to viral etiology of his gastrointestinal discomfort. Patient discharged home prescription sent for Zofran to patient's pharmacy <Ebony Gramajo I - Last Filed: 04/07/18 20:31> - General Chief Complaint: Pain Stated Complaint: MD ABDOMINAL PAIN NAUSEA,VOMITING,DIARRHEA Time Seen by Provider: 04/07/18 19:14 Past History <Edi Souza - Last Filed: 04/07/18 19:44> - Past Medical History Anemia: No Asthma: No Cancer: No Cardiac Disorders: No CVA: No COPD: No CHF: No DVT: No Dementia: No Diabetes: No GI Disorders: No Disorders: No HTN: No Hypercholesterolemia: No Kidney Stones: Yes Liver Disease: No Seizures: No Thyroid Disease: No Other medical history: GOUT - Surgical History Abdominal Surgery: Yes (HIATAL HERNIA REPAIR) Cholecystectomy: Yes - Suicide/Smoking/Psychosocial Hx Smoking Status: No Smoking History: Former smoker Have you smoked in the past 12 months: No Number of Cigarettes Smoked Daily: 0 If you are a former smoker, when did you quit?: 30 YEARS Information on smoking cessation initiated: No Hx Alcohol Use: Yes (SOCIAL) Drug/Substance Use Hx: No Substance Use Type: None Hx Substance Use Treatment: No <Ebony Gramajo I - Last Filed: 04/07/18 20:31> - Past Medical History Allergies/Adverse Reactions: Allergies Allergy/AdvReac Type Severity Reaction Status Date / Time No Known Allergies Allergy Verified 04/07/18 18:55 Home Medications: Ambulatory Orders Allopurinol [Zyloprim -] 0 mg PO DAILY 05/18/17 Hyoscyamine Odt [Levsin Odt -] 0.125 mg PO TID #9 tab.rapdis 04/07/18 Ondansetron [[facility]nd[facility]etron Odt] 8 mg PO QID [facility] 04/07/18 Abd/GI Specific PMHX - Complaint Specific PMHX Colitis: No Diverticulitis: No Gall Bladder Disease: Yes GERD: No Hepatitis: No Irritable Bowel Synd (IBS): No Pancreatitis: No GI Ulcer Disease: No <Ebony Gramajo I - Last Filed: 04/07/18 20:31> *Physical Exam - Vital Signs Last Vital Signs Temp Pulse Resp BP Pulse Ox 98.7 F 74 16 136/89 98 04/07/18 18:54 04/07/18 18:54 04/07/18 18:54 04/07/18 18:54 04/07/18 18:54 <Edi Souza - Last Filed: 04/07/18 19:44> - Vital Signs Last Vital Signs Temp Pulse Resp BP Pulse Ox 98.7 F 74 16 136/89 98 04/07/18 18:54 04/07/18 18:54 04/07/18 18:54 04/07/18 18:54 04/07/18 18:54 <Ebony Gramajo I - Last Filed: 04/07/18 20:31> Moderate Sedation - Procedure Monitoring Vital Signs: Procedure Monitoring Vital Signs Temperature 98.7 F 04/07/18 18:54 Pulse Rate 74 04/07/18 18:54 Respiratory Rate 16 04/07/18 18:54 Blood Pressure 136/89 04/07/18 18:54 O2 Sat by Pulse Oximetry (%) 98 04/07/18 18:54 <Edi Souza - Last Filed: 04/07/18 19:44> - Procedure Monitoring Vital Signs: Procedure Monitoring Vital Signs Temperature 98.7 F 04/07/18 18:54 Pulse Rate 74 04/07/18 18:54 Respiratory Rate 16 04/07/18 18:54 Blood Pressure 136/89 04/07/18 18:54 O2 Sat by Pulse Oximetry (%) 98 04/07/18 18:54 <Ebony Gramajo I - Last Filed: 04/07/18 20:31> ED Treatment Course - Medications Given in the ED: ED Medications Discontinued Medications Generic Name Dose Route Start Last Admin Trade Name Jose Juanq PRN Reason Stop Dose Admin Ondansetron HCl 8 mg 04/07/18 19:30 04/07/18 19:41 Zofran Injection IVPB 04/07/18 19:31 8 mg ONCE ONE Administration <Edi Souza - Last Filed: 04/07/18 19:44> - LABORATORY CBC & Chemistry Diagram: 04/07/18 19:40 04/07/18 19:40 <Ebony Gramajo I - Last Filed: 04/07/18 20:31> *DC/Admit/Observation/Transfer - Attestations Scribe Attestion: 04/07/18 19:45 Documentation prepared by Edi Souza, acting as medical center representative for Ebony Gramajo MD. <Edi Souza - Last Filed: 04/07/18 19:44> - Discharge Dispostion Decision to Admit order: No <Ebony Gramajo I - Last Filed: 04/07/18 20:31> Diagnosis at time of Disposition: Dehydration Nausea & vomiting Qualifiers: Vomiting type: unspecified Vomiting Intractability: non-intractable Qualified Code(s): R11.2 - Nausea with vomiting, unspecified Diarrhea Qualifiers: Diarrhea type: unspecified type Qualified Code(s): R19.7 - Diarrhea, unspecified - Discharge Dispostion Disposition: HOME Condition at time of disposition: Stable - Prescriptions Prescriptions: Ondansetron [Ondansetron Odt] 8 mg PO QID PRN #12 tab.rapdis PRN Reason: Nausea - Patient Instructions Printed Discharge Instructions: DI for Vomiting -- Adult Additional Instructions: Clear liquids only for the next 6 hours.. If you vomit again take Zofran 1 tablet as often as every 6-8 hours After that if you have had no further vomiting you may have bananas, rice, applesauce, or toast. If no further vomiting for another 8 hours you may have regular food. If you vomit again then nothing to eat or drink for 2 hours. then start back with the clear liquids. Return to the emergency department immediately with ANY new, persistent or worsening symptoms. You MUST call and follow up with your doctor tomorrow if not better. Please make sure your doctor reviews the results of your emergency evaluation.
[2018-04-07] MEDS ORDERED: ONDANSETRON 4 MG/2 ML VIAL ONE (19:32)
[2018-04-07 19:54] LABS: PH,URINE 5.5 (4.5-8); URINE APPEARANCE Clear; URINE BILIRUBIN Negative (NEGATIVE); URINE COLOR Yellow; URINE GLUCOSE (UA) Negative (NEGATIVE); URINE KETONE Trace (NEGATIVE); URINE LEUK ESTERASE Negative (NEGATIVE); URINE NITRITE Negative (NEGATIVE); URINE PROTEIN Negative (NEGATIVE); URINE UROBILINOGEN 0.2 (0.2-1.0)
[2018-04-07 19:58] LABS: BASO % 0.9 % (0-2.0); EOS % 3.8 % (0-4.5); HEMOGLOBIN 14.4 GM/dl (11.7-16.9); LYMPH % 23.2 % (8-40); MCHC 32.8 g/dl (32.0-35.9); MEAN CELL VOLUME 97.6 fl (80-96); MEAN PLT VOLUME 7.6 fl (7.5-11.1); MONO % 11.1 % (3.8-10.2); PLATELET COUNT 159 K/MM3 (134-434); RBC 4.51 M/mm3 (4.00-5.60); RDW 12.8 % (11.9-15.9)
[2018-04-07 20:11] LABS: ALBUMIN 3.5 g/dl (3.5-5.0); ALK PHOS 69 U/L (32-92); ANION GAP 7 MMOL/L (8-16); BLOOD UREA NITROGEN 25 mg/dl (7-18); CALCIUM 8.3 mg/dl (8.4-10.2); CHLORIDE 108 mmol/L (98-107); CO2 24 mmol/L (22-28); CREATININE 1.1 mg/dl (0.6-1.3); GLUCOSE,RANDOM 92 mg/dl (74-106); POTASSIUM 3.6 mmol/L (3.5-5.1); SGOT/AST 26 U/L (10-42); SGPT/ALT 24 U/L (10-40); SODIUM 139 mmol/L (136-145)
[2018-04-07 20:27] LABS: EPI CELLS FEW /HPF; URINE RBC 0-2 /hpf (0-3); URINE WBC 0-2 (0-2)
[2018-04-07 20:28] LABS: URINE MUCUS 1+
[2018-04-07] MEDS ORDERED: HYOSCYAMINE SULFATE 0.125 MG *ODT PO ONE (20:29)
[2018-04-07] MEDS ORDERED: HYOSCYAMINE SULFATE 0.125 MG *ODT ONE (20:31)
--- NOTE | 2018-04-08 11:23 | EKG ---
Test Reason : Blood Pressure : / mmHG Vent. Rate : 063 BPM Atrial Rate : 063 BPM P-R Int : 156 ms QRS Dur : 092 ms QT Int : 430 ms P-R-T Axes : 068 063 060 degrees QTc Int : 440 ms NORMAL SINUS RHYTHM SEPTAL INFARCT , AGE UNDETERMINED ABNORMAL ECG WHEN COMPARED WITH ECG OF 30-DEC-2017 13:17, SEPTAL INFARCT IS NOW PRESENT Confirmed by ELIUD COLVIN, MATT ([id number]) on 04/08/2018 11:22:54 AM Referred By: DR ALEMAN Confirmed By:MATT KLINE MD
== END 2018-04-07 20:53 | disposition home or self-care (01) ==
LOC: FER 18:53
PROC: 3E033GC Introduction of Other Therapeutic Substance into Peripheral Vein, Percutaneous Approach (ICD-10-PCS; principal; 2018-04-07)
PROC: 3E0337Z Introduction of Electrolytic and Water Balance Substance into Peripheral Vein, Percutaneous Approach (ICD-10-PCS; 2018-04-07)
DX: E86.0 Dehydration (principal); R11.2 Nausea with vomiting, unspecified; R19.7 Diarrhea, unspecified
CPT/HCPCS: 36415; 80053; 81003; 81015; 82550; 83690; 84484; 85025; 93005; 99283-25; J7030

== ENCOUNTER 2019-05-11 18:27 | Emergency (ER) | payer BC ==
[2019-05-11 18:44] VITALS: BP 158/100; PULSE 65; TEMP 97.7; BMI 27.6
--- NOTE | 2019-05-11 18:48 | PDOC ---
History of Present Illness - General Chief Complaint: Toothache Stated Complaint: DENTAL SURGERY SWELLING Time Seen by Provider: 05/11/19 18:42 History Source: Patient Exam Limitations: No Limitations - History of Present Illness Initial Comments: 05/11/19 18:42 64 y/o male with swelling to left side of face. Had dental work done Wednesday for implant now with swelling and bleeding but no pain. Denies headache, fever or chills. On antibiotic, Amoxicillin. No SOB chest pain N/V/d/c. Pt had a dental appointment today with another dentist but cancelled and did not call dentist that performed procedure on Wednesday. Is this a multiple visit Asthma Patient?: No Past History - Past Medical History Allergies/Adverse Reactions: Allergies Allergy/AdvReac Type Severity Reaction Status Date / Time No Known Allergies Allergy Verified 04/07/18 18:55 Home Medications: Ambulatory Orders Allopurinol 300 mg PO DAILY 05/11/19 Amoxicillin - [Amoxicillin 500mg Capsule -] 500 mg PO TID 05/11/19 Ibuprofen 800 mg PO BID 05/11/19 Sertraline HCl [Zoloft -] 50 mg PO DAILY 05/11/19 Anemia: No Asthma: No Cancer: No Cardiac Disorders: No CVA: No COPD: No CHF: No DVT: No Dementia: No Diabetes: No GI Disorders: No Disorders: No HTN: No Hypercholesterolemia: No Kidney Stones: Yes Liver Disease: No Seizures: No Thyroid Disease: No - Surgical History Abdominal Surgery: Yes (HIATAL HERNIA REPAIR) Cholecystectomy: Yes - Psycho Social/Smoking Cessation Hx Smoking Status: No Smoking History: Former smoker Have you smoked in the past 12 months: No Number of Cigarettes Smoked Daily: 0 If you are a former smoker, when did you quit?: 30 YEARS Hx Alcohol Use: Yes (SOCIAL) Drug/Substance Use Hx: No Substance Use Type: None Hx Substance Use Treatment: No Review of Systems - Review of Systems Able to Perform ROS?: Yes Is the patient limited Nepali proficient: No Constitutional: No: Chills, Fever HEENTM: Yes: Dental Problems, Mouth Swelling. No: Throat Swelling, Mouth Pain Respiratory: No: Cough, Shortness of Breath ABD/GI: No: Nausea, Vomiting Musculoskeletal: No: Muscle Pain Integumentary: No: Bruising, Rash All Other Systems: Reviewed and Negative *Physical Exam - Physical Exam General Appearance: Yes: Nourished, Appropriately Dressed. No: Apparent Distress HEENT: positive: EOMI, ARELIS, Normal Voice, Pharynx Normal. negative: Normal ENT Inspection (swelling to left lower face and cheek, non tender or fluctuance , dried blood to frontal teeth, with mild swelling to gums noted) Neck: positive: Trachea midline, Normal Thyroid, Supple. negative: Tender, Rigid Respiratory/Chest: positive: Lungs Clear, Normal Breath Sounds. negative: Chest Tender, Respiratory Distress Cardiovascular: positive: Regular Rhythm, Regular Rate, S1, S2. negative: Edema , JVD, Murmur Vascular Pulses: Femoral (R): 4+, Femoral (L): 4+, Carotid (R): 4+, Carotid (L) : 4+, Dorsalis-Pedis (R): 4+, Doralis-Pedis (L): 4+ Lymphatic: negative: Adenopathy, Tenderness, Other Musculoskeletal: positive: Normal Inspection. negative: CVA Tenderness Extremity: positive: Normal Capillary Refill, Normal Inspection, Normal Range of Motion, Tender Integumentary: positive: Normal Color, Dry, Warm Neurologic: positive: hand upper and bottom lacer II-XII NML intact, Fully Oriented, Alert, Normal Mood/ Affect, Normal Response, Motor Strength 5/5 ED Treatment Course - ADDITIONAL ORDERS Additional order review: 05/11/19 18:46 Facial swelling from dental procedure Continue ice, Motrin and antibiotic If worsen return to ER Follow up with dentist Discharge - Discharge Information Problems reviewed: Yes Clinical Impression/Diagnosis: Facial swelling Condition: Good Disposition: HOME - Admission No - Follow up/Referral Referrals: Nghia Hawley MD [Primary Care Provider] - - Patient Discharge Instructions Patient Printed Discharge Instructions: DI for Dental Pain Additional Instructions: Continue current antibiotic Ice, Motrin, rest Follow up with Dentist If worsen return to ER - Post Discharge Activity
== END 2019-05-11 18:52 | disposition home or self-care (01) ==
LOC: FER 18:27
DX: R22.0 Localized swelling, mass and lump, head (principal); N20.0 Calculus of kidney; Z87.891 Personal history of nicotine dependence
CPT/HCPCS: 99281-25

== ENCOUNTER 2019-05-27 00:57 | Emergency (ER) | payer BC ==
[2019-05-27 01:16] VITALS: BP 130/76; PULSE 56; TEMP 97.7; BMI 27.6
--- NOTE | 2019-05-27 01:23 | PDOC ---
History of Present Illness - General Chief Complaint: Pain, Acute Stated Complaint: ABD PAIN Time Seen by Provider: 05/27/19 01:09 History Source: Patient Exam Limitations: No Limitations - History of Present Illness Initial Comments: 05/27/19 03:09 This is a 64-year-old male who comes in complaining of left flank pain times several hours. Patient has a history of kidney stones in the past. Patient said it feels like his kidney stone in the past. Patient started vomiting here in the ED. Patient otherwise denies any fevers, chills. Allergies: as per nursing notes Past Medical History: none Social history: Lives with family. No smoking. No alcohol. No illicit drugs. Surgical history: None General: No fevers or chills, no weakness, no weight loss HEENT: No change in vision. No sore throat,. No ear pain CardioVascular: no chest discomfort. No shortness of breath Respiratory:No cough, or wheezing. Gastrointestinal: no nausea, vomiting, diarrhea or constipation, No rectal bleeding Genitourinary: No dysuria, hematuria, or frequency, left flank pain radiating to left groin Musculoskeletal: No joint or muscle pain or swelling Neurologic: No headache, vertigo, dizziness or loss of consciousness Psychiatric: nor depression Skin: No rashes or easy bruising Endocrine: no increased thirst or abnormal weight change Allergic: no skin or latex allergy All other systems reviewed and normal GENERAL: The patient is awake, alert, and fully oriented, in no acute distress. HEAD: Normal with no signs of trauma. EYES: Pupils equal, round and reactive to light, extraocular movements intact, sclera anicteric, conjunctiva clear. EXTREMITIES:atraumatic, Normal range of motion, no edema. Back/flank there is tenderness on palpation of the left flank area as well as left lower quadrant there is no guarding or rebound NEUROLOGICAL: Normal speech, normal gait. PSYCH: Normal mood, normal affect. SKIN: Warm, Dry, normal turgor, no rashes or lesions noted. 64-year-old male with left flank pain radiating into his groin. Work-up initiated including CBC, comp, UA, renal spiral CT. 05/27/19 03:11 Patient's blood work was unremarkable with the exception of his urine did have 3 + blood in it. CAT scan showed an 6 mm stone at the left UVJ. Patient given copies of his CAT scan. Patient comfortable after IV fluids and pain medications. Prescription sent to the pharmacy for Percocet and Zofran. Patient discharged we will follow-up with his urologist on Wednesday morning Past History - Past Medical History Allergies/Adverse Reactions: Allergies Allergy/AdvReac Type Severity Reaction Status Date / Time No Known Allergies Allergy Verified 04/07/18 18:55 Home Medications: Ambulatory Orders Allopurinol 300 mg PO DAILY 05/11/19 Ondansetron [Zofran *Odt*] 8 mg SL TID #12 od.tablet 05/27/19 Oseltamivir Phosphate 75 mg PO BID 05/27/19 Oxycodone HCl/Acetaminophen [Percocet 5-325 mg Tablet] 1 - 2 tab PO Q4H #20 tablet MDD 8 05/27/19 Promethazine HCl/Codeine [Prometh-Codein 6.25-10 mg/5 ml] 5 ml PO QID PRN Anemia: No Asthma: No Cancer: No Cardiac Disorders: No CVA: No COPD: No CHF: No DVT: No Dementia: No Diabetes: No GI Disorders: No Disorders: No HTN: No Hypercholesterolemia: No Kidney Stones: Yes Liver Disease: No Seizures: No Thyroid Disease: No - Surgical History Abdominal Surgery: Yes (HIATAL HERNIA REPAIR) Cholecystectomy: Yes - Psycho Social/Smoking Cessation Hx Smoking Status: No Smoking History: Never smoked Have you smoked in the past 12 months: No Number of Cigarettes Smoked Daily: 0 If you are a former smoker, when did you quit?: 30 YEARS Hx Alcohol Use: Yes (SOCIAL) Drug/Substance Use Hx: No Substance Use Type: None Hx Substance Use Treatment: No Abd/GI Specific PMHX - Complaint Specific PMHX Colitis: No Diverticulitis: No Gall Bladder Disease: Yes GERD: No Hepatitis: No Irritable Bowel Synd (IBS): No Pancreatitis: No GI Ulcer Disease: No *Physical Exam - Vital Signs Last Vital Signs Temp Pulse Resp BP Pulse Ox 97.7 F 56 L 18 130/76 99 05/27/19 00:58 05/27/19 00:58 05/27/19 00:58 05/27/19 00:58 05/27/19 00:58 ED Treatment Course - LABORATORY CBC & Chemistry Diagram: 05/27/19 01:40 05/27/19 01:40 Discharge - Discharge Information Problems reviewed: Yes Clinical Impression/Diagnosis: Renal colic on left side Condition: Stable Disposition: HOME - Admission No - Follow up/Referral - Patient Discharge Instructions Additional Instructions: For the pain take Percocet 1 or 2 tablets every 4-6 hours as needed. In addition to the Percocet you can also take ibuprofen or Tylenol. For nausea take Zofran 1 tablet as often as 3 times a day. Call your urologist on Wednesday and get an appointment to follow-up as soon as possible. Return to the emergency department immediately with ANY new, persistent or worsening symptoms. Continue any medications as previously prescribed by your physician. You should follow up with your primary doctor as soon as possible regarding today's emergency department visit. . Please make sure your doctor reviews the results of your emergency evaluation. Thank you for coming to the Emergency Department today for your care. It was a pleasure to see you today. Please note that your evaluation is INCOMPLETE until you follow-up with your doctor. - Post Discharge Activity
[2019-05-27] MEDS ORDERED: morphine CARPU-JECT 2 MG/1 ML DISP.SYRIN IVPUSH ONE (01:25)
[2019-05-27] MEDS ORDERED: KETOROLAC TROMETHAMINE 30 MG/1 ML VIAL IVPUSH ONE (01:25)
[2019-05-27] MEDS ORDERED: ONDANSETRON 4 MG/2 ML VIAL IVPB ONE (01:25)
[2019-05-27] MEDS ORDERED: SODIUM CHLORIDE 1,000 ML IV ONE (01:25)
[2019-05-27] MEDS ORDERED: morphine SULFATE 4 MG/ML VIAL ONE (01:34)
[2019-05-27] MEDS ORDERED: ONDANSETRON 4 MG/2 ML VIAL ONE ×2 (01:34→01:35)
[2019-05-27] MEDS ORDERED: KETOROLAC TROMETHAMINE 30 MG/1 ML VIAL ONE (01:34)
[2019-05-27 02:20] LABS: EPI CELLS 0.7 /HPF (0-5/HPF); HYALINE CASTS 2 /lpf (0-8); URINE APPEARANCE CLEAR; URINE BACTERIA 2.2 /hpf (NEGATIVE); URINE BILIRUBIN NEGATIVE (NEGATIVE); URINE COLOR YELLOW; URINE GLUCOSE (UA) NEGATIVE (NEGATIVE); URINE KETONE NEGATIVE (NEGATIVE); URINE LEUK ESTERASE NEGATIVE (NEGATIVE); URINE NITRITE NEGATIVE (NEGATIVE); URINE PROTEIN NEGATIVE (NEGATIVE); URINE RBC 84 /hpf (0-4); URINE UROBILINOGEN 0.2 mg/dL (0.2-1.0); URINE WBC 0 /hpf (0-5)
[2019-05-27 02:21] LABS: BASO % 0.6 % (0-2.0); EOS % 4.1 % (0-4.5); HEMATOCRIT 42.2 % (35.4-49); HEMOGLOBIN 14.8 GM/dL (11.7-16.9); LYMPH % 35.4 % (8-40); MCH 33.3 pg (25.7-33.7); MEAN CELL VOLUME 95.1 fl (80-96); MEAN PLT VOLUME 8.1 fl (7.5-11.1); MONO % 16.2 % (3.8-10.2); NEUT % 43.7 % (42.8-82.8); PLATELET COUNT 132 K/MM3 (134-434); RBC 4.44 M/mm3 (4.00-5.60); RDW 13.4 % (11.9-15.9); WHITE BLOOD COUNT 3.5 K/mm3 (4.0-10.0)
[2019-05-27 02:49] LABS: ALBUMIN 3.4 g/dl (3.4-5.0); BILIRUBIN,TOTAL 0.6 mg/dL (0.2-1); BLOOD UREA NITROGEN 28.1 mg/dL (7-18); CALCIUM 8.5 mg/dL (8.5-10.1); CREATININE 1.2 mg/dL (0.55-1.3); POTASSIUM 3.6 mmol/L (3.5-5.1); TOT PROT 6.3 g/dl (6.4-8.2)
== END 2019-05-27 03:22 | disposition home or self-care (01) ==
LOC: FER 00:57
PROC: 3E0333Z Introduction of Anti-inflammatory into Peripheral Vein, Percutaneous Approach (ICD-10-PCS; principal; 2019-05-27)
PROC: 3E033NZ Introduction of Analgesics, Hypnotics, Sedatives into Peripheral Vein, Percutaneous Approach (ICD-10-PCS; 2019-05-27)
PROC: 3E033GC Introduction of Other Therapeutic Substance into Peripheral Vein, Percutaneous Approach (ICD-10-PCS; 2019-05-27)
DX: N23 Unspecified renal colic (principal); Z87.442 Personal history of urinary calculi; Z87.891 Personal history of nicotine dependence
CPT/HCPCS: 36415; 74176-TC; 80053; 81003; 85025; 87086; 99283-25; J7030

== ENCOUNTER 2020-04-19 09:14 | Emergency (ER) | payer BC ==
[2020-04-19 09:24] VITALS: TEMP 98; BMI 27.6
[2020-04-19 10:16] VITALS: BP 159/107; PULSE 58
[2020-04-19] MEDS ORDERED: ACETAMINOPHEN 500 MG TABLET (FP) PO ONE (10:34)
[2020-04-19] MEDS ORDERED: ACETAMINOPHEN 500 MG TABLET (FP) ONE (10:44)
== END 2020-04-19 10:53 | disposition home or self-care (01) ==
LOC: FER 09:14
DX: R07.9 Chest pain, unspecified (principal)
CPT/HCPCS: 71046-TC-FY; 93005; 99284-25

== ENCOUNTER 2020-05-23 22:25 | Emergency (ER) | payer BC ==
[2020-05-23 22:32] VITALS: BP 115/78; PULSE 55; TEMP 98; BMI 26.9
[2020-05-23] MEDS ORDERED: AZITHROMYCIN IVPB 500 MG in DEXTROSE 5%-WATER - 250 ML IVPB ONE (23:24)
[2020-05-23] MEDS ORDERED: KETOROLAC TROMETHAMINE 60 MG/2 ML VIAL IM ONE (23:35)
[2020-05-23] MEDS ORDERED: KETOROLAC TROMETHAMINE 60 MG/2 ML VIAL ONE (23:38)
== END 2020-05-23 23:44 | disposition home or self-care (01) ==
LOC: FER 22:25
PROC: 3E0233Z Introduction of Anti-inflammatory into Muscle, Percutaneous Approach (ICD-10-PCS; principal; 2020-05-23)
DX: S20.212A Contusion of left front wall of thorax, initial encounter (principal)
CPT/HCPCS: 71101-TC-LT-FY; 99284-25

== ENCOUNTER 2020-06-18 04:17 | Day surgery (SDC) | payer BC ==
[2020-06-18 08:01] VITALS: BMI 27.8
[2020-06-18 09:07] VITALS: TEMP 97.9
[2020-06-18 09:37] VITALS: BP 146/77; PULSE 56
== END 2020-06-18 10:18 | disposition home or self-care (01) ==
LOC: JASU-ENDO 04:17
PROVIDERS: ATTEND Internal Medicine Gastroenterology
PROC: 0DBL8ZX Excision of Transverse Colon, Via Natural or Artificial Opening Endoscopic, Diagnostic (ICD-10-PCS; 2020-06-18)
PROC: 0DBN8ZX Excision of Sigmoid Colon, Via Natural or Artificial Opening Endoscopic, Diagnostic (ICD-10-PCS; principal; 2020-06-18 08:32)
DX: Z86.010 Personal history of colon polyps (principal); D12.5 Benign neoplasm of sigmoid colon; D12.3 Benign neoplasm of transverse colon; K64.8 Other hemorrhoids
CPT/HCPCS: 88305-TC

== ENCOUNTER 2020-06-21 04:40 | Day surgery (SDC) | payer BC ==
[2020-06-17 19:21] VITALS: BMI 27.1
[2020-06-21] MEDS ORDERED: LIDOCAINE HCL 1%, 10 MG/ML (20ML VIAL) ONE (07:19)
[2020-06-21] MEDS ORDERED: PROPOFOL 20 ML ONE ×2 (07:40)
[2020-06-21] MEDS ORDERED: MIDAZOLAM HCL 2 MG/2 ML SINGLE DOSE VIAL ONE (07:40)
[2020-06-21] MEDS ORDERED: LIDOCAINE HCL 1%, 10 MG/ML (20ML VIAL) INF ONE ×2 (08:31)
[2020-06-21] MEDS ORDERED: BUPIVACAINE HCL/PF 0.5% (5MG/ML) 10 ML VIAL IJ ONE ×2 (08:31)
[2020-06-21] MEDS ORDERED: BENZOIN/ALOE VERA/STORAX/TOLU 58 ML BOTTLE ONE (08:50)
[2020-06-21] MEDS ORDERED: ACETAMINOPHEN 500 MG TABLET (FP) PO PRN (09:14)
[2020-06-21] MEDS ORDERED: KETOROLAC TROMETHAMINE 15 MG/ML VIAL IVPUSH ONE (09:15)
[2020-06-21] MEDS ORDERED: ONDANSETRON 4 MG/2 ML VIAL IVPUSH PRN (10:01)
[2020-06-21] MEDS ORDERED: oxyCODONE HCL 5 MG TABLET PO PRN (10:01)
[2020-06-21] MEDS ORDERED: LACTATED RINGERS SOLUTION 1,000 ML IV SCH (10:15)
[2020-06-21 11:39] VITALS: BP 130/70; PULSE 60; TEMP 98
== END 2020-06-21 11:00 | disposition home or self-care (01) ==
LOC: JASU-SURG 04:40
PROVIDERS: ATTEND Surgery
PROC: 0JB60ZZ Excision of Chest Subcutaneous Tissue and Fascia, Open Approach (ICD-10-PCS; principal; 2020-06-21 08:00)
DX: D21.3 Benign neoplasm of connective and other soft tissue of thorax (principal)
CPT/HCPCS: 88305-TC

== ENCOUNTER 2020-09-03 00:32 | Emergency (ER) | payer BC ==
[2020-09-03 00:42] VITALS: BP 146/94; PULSE 63; TEMP 98.7; BMI 27.3
[2020-09-03] MEDS ORDERED: KETOROLAC TROMETHAMINE 15 MG/ML VIAL IVPUSH ONE (00:44)
[2020-09-03] MEDS ORDERED: SODIUM CHLORIDE 0.9% 500 ML INFUS.BAG IV ONE (00:45)
[2020-09-03] MEDS ORDERED: ONDANSETRON 4 MG/2 ML VIAL IVPUSH ONE (00:45)
[2020-09-03] MEDS ORDERED: ONDANSETRON 4 MG/2 ML VIAL ONE (00:47)
[2020-09-03] MEDS ORDERED: KETOROLAC TROMETHAMINE 15 MG/ML VIAL ONE (00:48)
[2020-09-03 01:28] LABS: BASO % 0.2 % (0-2.0); EOS % 0.9 % (0-4.5); HEMATOCRIT 42.3 % (35.4-49); HEMOGLOBIN 14.6 GM/dL (11.7-16.9); LYMPH % 11.9 % (8-40); MCH 32.9 pg (25.7-33.7); MCHC 34.5 g/dl (32.0-35.9); MEAN CELL VOLUME 95.3 fl (80-96); MEAN PLT VOLUME 8.4 fl (7.5-11.1); PLATELET COUNT 159 K/MM3 (134-434); RBC 4.44 M/mm3 (4.00-5.60); RDW 13.7 % (11.9-15.9); WHITE BLOOD COUNT 6.1 K/mm3 (4.0-10.0)
[2020-09-03 01:32] LABS: EPI CELLS 4 /uL (0-25.1); HYALINE CASTS 1 /uL (0-3.1); URINE APPEARANCE CLOUDY; URINE BACTERIA 12 /uL (0-1359); URINE BILIRUBIN NEGATIVE (NEGATIVE); URINE COLOR YELLOW; URINE GLUCOSE (UA) NEGATIVE (NEGATIVE); URINE KETONE NEGATIVE (NEGATIVE); URINE LEUK ESTERASE NEGATIVE (NEGATIVE); URINE NITRITE NEGATIVE (NEGATIVE); URINE PROTEIN 1+ (NEGATIVE); URINE RBC 521 /uL (0-23.9); URINE UROBILINOGEN 0.2 mg/dL (0.2-1.0); URINE WBC 15 /uL (0-25.8)
[2020-09-03 01:50] LABS: BLOOD UREA NITROGEN 24.4 mg/dL (7-18); CALCIUM 8.8 mg/dL (8.5-10.1)
[2020-09-03 01:51] LABS: ALBUMIN 3.6 g/dl (3.4-5.0)
[2020-09-03 01:53] LABS: BILIRUBIN,TOTAL 0.8 mg/dL (0.2-1); CREATININE 1.1 mg/dL (0.55-1.3)
[2020-09-03 01:54] LABS: TOT PROT 6.5 g/dl (6.4-8.2)
== END 2020-09-03 02:13 | disposition home or self-care (01) ==
LOC: FER 00:32
PROC: 3E0333Z Introduction of Anti-inflammatory into Peripheral Vein, Percutaneous Approach (ICD-10-PCS; principal; 2020-09-03)
PROC: 3E033GC Introduction of Other Therapeutic Substance into Peripheral Vein, Percutaneous Approach (ICD-10-PCS; 2020-09-03)
DX: N23 Unspecified renal colic (principal); R10.9 Unspecified abdominal pain; R31.9 Hematuria, unspecified
CPT/HCPCS: 36415; 80053; 81003; 85025; 87086; 99284-25

== ENCOUNTER 2020-10-06 22:25 | Observation (INO) | payer BC, OTHER ==
[2020-10-06] MEDS ORDERED: PIPERACILLIN/TAZOB 3.375 GM 3.375 GM in DEXTROSE 5%-WATER - 50 ML IVPB ONE (23:21)
[2020-10-06] MEDS ORDERED: DIPHTH,PERTUSS(ACELL),TET 0.5 ML DISP.SYRIN IM ONE ×2 (23:22→23:59)
[2020-10-06] MEDS ORDERED: VANCOMYCIN 1 GM in D5W (PRE-DOCKED) 1,000 MG/250 ML IVPB ONE (23:22)
[2020-10-06 23:56] LABS: BASO % 1.6 % (0-2.0); HEMATOCRIT 39.8 % (35.4-49); HEMOGLOBIN 13.6 GM/dL (11.7-16.9); LYMPH % 34.7 % (8-40); MCH 32.4 pg (25.7-33.7); MCHC 34.2 g/dl (32.0-35.9); MEAN CELL VOLUME 94.6 fl (80-96); MEAN PLT VOLUME 7.6 fl (7.5-11.1); MONO % 12.6 % (3.8-10.2); NEUT % 46.1 % (42.8-82.8); PLATELET COUNT 162 10^3/uL (134-434); RBC 4.21 M/mm3 (4.00-5.60); RDW 13.8 % (11.9-15.9); WHITE BLOOD COUNT 4.1 K/mm3 (4.0-10.0)
[2020-10-06] MEDS ORDERED: PIPERACILLIN/TAZOB 3.375 GM 3.375 GM/50 ML BAG IVPB ONE (23:59)
[2020-10-06] MEDS ORDERED: VANCOMYCIN 1 GRAM (PRE-DOCKED) 1,000 MG/250 ML BAG IVPB ONE (23:59)
[2020-10-07 00:18] LABS: ALBUMIN 3.4 g/dl (3.4-5.0)
[2020-10-07 00:21] LABS: CREATININE 1.1 mg/dL (0.55-1.3)
[2020-10-07 00:23] LABS: BILIRUBIN,TOTAL 0.5 mg/dL (0.2-1); TOT PROT 6.4 g/dl (6.4-8.2)
[2020-10-07] MEDS ORDERED: ACETAMINOPHEN 325 MG TABLET (FP) PO PRN (01:58)
[2020-10-07] MEDS ORDERED: SODIUM CHLORIDE 0.45% 1,000 ML IV SCH (02:00)
[2020-10-07 03:31] VITALS: BMI 28.0
[2020-10-07] MEDS ORDERED: PIPERACILLIN/TAZOBACTAM 3.375 GM VIAL IVPB ONE ×4 (04:04→20:59)
[2020-10-07] MEDS ORDERED: DEXTROSE 5%-WATER - 50 ML IVPB ONE ×4 (04:04→20:59)
[2020-10-07] MEDS: PIPERACILLIN/TAZOB 3.375 GM 3.375 GM in DEXTROSE 5%-WATER - 50 ML IVPB SCH ×4 (04:11→21:10)
[2020-10-07] MEDS ORDERED: VANCOMYCIN/WATER BAGS 1,250 MG/250 ML BAG IVPB SCH (09:00)
[2020-10-07] MEDS: HYDROCHLOROTHIAZIDE 12.5 MG CAPSULE (FP) PO SCH (09:02)
[2020-10-07] MEDS: ENOXAPARIN NA (PORCINE) 40 MG/0.4 ML DISP.SYRIN SQ SCH (09:02)
[2020-10-07 09:10] LABS: HEMATOCRIT 40.8 % (35.4-49); HEMOGLOBIN 13.5 GM/dL (11.7-16.9); MCH 31.7 pg (25.7-33.7); MCHC 33.2 g/dl (32.0-35.9); MEAN CELL VOLUME 95.8 fl (80-96); PLATELET COUNT 163 10^3/uL (134-434); RBC 4.26 M/mm3 (4.00-5.60); RDW 13.5 % (11.9-15.9); WHITE BLOOD COUNT 3.9 K/mm3 (4.0-10.0)
[2020-10-07 09:41] LABS: ALBUMIN 3.1 g/dl (3.4-5.0); BLOOD UREA NITROGEN 24.7 mg/dL (7-18)
[2020-10-07 09:42] LABS: CALCIUM 8.6 mg/dL (8.5-10.1)
[2020-10-07 09:43] LABS: CREATININE 1.1 mg/dL (0.55-1.3); PHOSPHOROUS 2.1 mg/dL (2.5-4.9)
[2020-10-07 09:45] LABS: TOT PROT 5.7 g/dl (6.4-8.2)
[2020-10-07 09:47] LABS: BILIRUBIN,TOTAL 1.2 mg/dL (0.2-1)
[2020-10-07] MEDS: ALLOPURINOL 300 MG TABLET (FP) PO SCH (11:17)
[2020-10-07] MEDS ORDERED: amLODIPine BESYLATE 5 MG TABLET (FP) PO ONE (14:16)
[2020-10-07] MEDS ORDERED: VANCOMYCIN 1 GRAM (PRE-DOCKED) 1,000 MG/250 ML BAG IVPB ONE (17:45)
[2020-10-08] MEDS ORDERED: PIPERACILLIN/TAZOB 3.375 GM 3.375 GM in DEXTROSE 5%-WATER - 50 ML IVPB ONE (03:00)
[2020-10-08] MEDS ORDERED: DEXTROSE 5%-WATER - 50 ML IVPB ONE (03:33)
[2020-10-08] MEDS ORDERED: PIPERACILLIN/TAZOBACTAM 3.375 GM VIAL IVPB ONE (03:33)
[2020-10-08 08:49] LABS: HEMATOCRIT 43.5 % (35.4-49); HEMOGLOBIN 14.6 GM/dL (11.7-16.9); MCH 32.1 pg (25.7-33.7); MCHC 33.5 g/dl (32.0-35.9); MEAN CELL VOLUME 95.6 fl (80-96); MEAN PLT VOLUME 7.6 fl (7.5-11.1); PLATELET COUNT 170 10^3/uL (134-434); RBC 4.55 M/mm3 (4.00-5.60)
[2020-10-08] MEDS ORDERED: PT OWN MED DRAWER 7, Y5N ONE (08:56)
[2020-10-08] MEDS: ENOXAPARIN NA (PORCINE) 40 MG/0.4 ML DISP.SYRIN SQ SCH (09:00)
[2020-10-08] MEDS: HYDROCHLOROTHIAZIDE 12.5 MG CAPSULE (FP) PO SCH (09:00)
[2020-10-08] MEDS: ALLOPURINOL 300 MG TABLET (FP) PO SCH (09:00)
[2020-10-08 09:32] LABS: CALCIUM 8.8 mg/dL (8.5-10.1)
[2020-10-08 09:33] LABS: BLOOD UREA NITROGEN 17.1 mg/dL (7-18)
[2020-10-08 09:36] LABS: CREATININE 1.2 mg/dL (0.55-1.3)
[2020-10-08] MEDS: VANCOMYCIN/WATER BAGS 1,250 MG/250 ML BAG IVPB SCH ×2 (12:30→12:31)
[2020-10-08] MEDS: PIPERACILLIN/TAZOB 3.375 GM 3.375 GM in DEXTROSE 5%-WATER - 50 ML IVPB SCH ×3 (12:30→12:32)
[2020-10-09 09:04] LABS: EOS % 3.8 % (0-4.5); HEMOGLOBIN 15.3 GM/dL (11.7-16.9); LYMPH % 29.1 % (8-40); MCH 33.1 pg (25.7-33.7); MCHC 34.9 g/dl (32.0-35.9); MEAN CELL VOLUME 94.8 fl (80-96); MEAN PLT VOLUME 7.5 fl (7.5-11.1); NEUT % 53.1 % (42.8-82.8); PLATELET COUNT 177 10^3/uL (134-434); RBC 4.64 M/mm3 (4.00-5.60); WHITE BLOOD COUNT 3.7 K/mm3 (4.0-10.0)
[2020-10-09] MEDS ORDERED: PT OWN MED DRAWER 7, Y5N ONE (09:13)
[2020-10-09] MEDS ORDERED: DEXTROSE 5%-WATER - 50 ML IVPB ONE (09:14)
[2020-10-09] MEDS ORDERED: cefTRIAXone SODIUM 1 GM VIAL ONE (09:14)
[2020-10-09] MEDS: CEFTRIAXONE 1 GM in DEXTROSE 5%-WATER - 50 ML IVPB SCH (09:18)
[2020-10-09] MEDS: ENOXAPARIN NA (PORCINE) 40 MG/0.4 ML DISP.SYRIN SQ SCH (09:19)
[2020-10-09] MEDS: ALLOPURINOL 300 MG TABLET (FP) PO SCH (09:19)
[2020-10-09] MEDS: HYDROCHLOROTHIAZIDE 12.5 MG CAPSULE (FP) PO SCH (09:19)
[2020-10-09 09:34] LABS: CALCIUM 8.7 mg/dL (8.5-10.1)
[2020-10-09 09:35] LABS: BLOOD UREA NITROGEN 20.1 mg/dL (7-18)
[2020-10-09 09:36] LABS: CREATININE 1.1 mg/dL (0.55-1.3)
[2020-10-09 09:37] LABS: BILIRUBIN,TOTAL 0.7 mg/dL (0.2-1)
[2020-10-09 09:38] LABS: ALBUMIN 3.4 g/dl (3.4-5.0); TOT PROT 6.3 g/dl (6.4-8.2)
[2020-10-10] MEDS ORDERED: DEXTROSE 5%-WATER - 50 ML IVPB ONE (09:13)
[2020-10-10] MEDS ORDERED: PT OWN MED DRAWER 7, Y5N ONE (09:13)
[2020-10-10] MEDS ORDERED: cefTRIAXone SODIUM 1 GM VIAL ONE (09:13)
[2020-10-10] MEDS: CEFTRIAXONE 1 GM in DEXTROSE 5%-WATER - 50 ML IVPB SCH (09:23)
[2020-10-10] MEDS: ENOXAPARIN NA (PORCINE) 40 MG/0.4 ML DISP.SYRIN SQ SCH (09:23)
[2020-10-10] MEDS: ALLOPURINOL 300 MG TABLET (FP) PO SCH (09:24)
[2020-10-10] MEDS: HYDROCHLOROTHIAZIDE 12.5 MG CAPSULE (FP) PO SCH (09:24)
[2020-10-10 14:04] VITALS: BP 133/81; PULSE 61; TEMP 98.2
== END 2020-10-10 14:58 | disposition home or self-care (01) ==
LOC: JER 22:25 → JERBED 10-07 00:52 → INTOOBSV 10-07 00:52 → J6S 10-07 02:49
PROVIDERS: ADMIT Internal Medicine; ATTEND Internal Medicine
PROC: 3E03329 Introduction of Other Anti-infective into Peripheral Vein, Percutaneous Approach (ICD-10-PCS; principal; 2020-10-07)
PROC: 3E0134Z Introduction of Serum, Toxoid and Vaccine into Subcutaneous Tissue, Percutaneous Approach (ICD-10-PCS; 2020-10-07)
DX: L08.89 Other specified local infections of the skin and subcutaneous tissue (principal); S99.822A Other specified injuries of left foot, initial encounter; W29.4XXA Contact with nail gun, initial encounter; Y93.89 Activity, other specified; Y92.9 Unspecified place or not applicable; I10 Essential (primary) hypertension; Z29.8 Encounter for other specified prophylactic measures; L03.116 Cellulitis of left lower limb; M10.9 Gout, unspecified; Z87.891 Personal history of nicotine dependence; Z18.10 Retained metal fragments, unspecified
CPT/HCPCS: 36415; 73630-TC-LT; 73700-TC-RT; 80048; 80053; 83735; 84100; 85025; 85027; 87040; 90471; 90715; 93005; 93010; 96365; 96367; 96372; 96375; 99285-25; C9803; G0378; U0003; U0005

== ENCOUNTER 2020-11-25 19:34 | Inpatient (IN) | payer OTHER, BC ==
[2020-11-25] MEDS ORDERED: AMOX TR/POT CLAV 875MG/125MG TABLETS (FP) PO ONE (20:46)
[2020-11-25] MEDS ORDERED: LORATADINE 10 MG TABLET PO ONE (20:47)
[2020-11-25] MEDS ORDERED: AMOX TR/POT CLAV 875MG/125MG TABLETS (FP) ONE (20:53)
[2020-11-25] MEDS ORDERED: LORATADINE 10 MG TABLET ONE (20:53)
[2020-11-25 23:05] LABS: BASO % 0.6 % (0-2.0); EOS % 3.1 % (0-4.5); HEMATOCRIT 39.8 % (35.4-49); HEMOGLOBIN 13.9 GM/dL (11.7-16.9); LYMPH % 16.9 % (8-40); MCH 33.2 pg (25.7-33.7); MEAN PLT VOLUME 7.8 fl (7.5-11.1); NEUT % 67.4 % (42.8-82.8); PLATELET COUNT 148 10^3/uL (134-434); RBC 4.19 M/mm3 (4.00-5.60); RDW 13.8 % (11.9-15.9); WHITE BLOOD COUNT 6.3 K/mm3 (4.0-10.0)
[2020-11-25 23:27] LABS: BLOOD UREA NITROGEN 28.7 mg/dL (7-18); CALCIUM 8.4 mg/dL (8.5-10.1)
[2020-11-25 23:30] LABS: CREATININE 1.1 mg/dL (0.55-1.3)
[2020-11-26] MEDS ORDERED: CLINDAMYCIN IVPB 300 MG in DEXTROSE 5%-WATER - 48 ML IVPB ONE (02:14)
[2020-11-26] MEDS ORDERED: CLINDAMYCIN 300 MG PREMIX IVPB 300 MG/50 ML BAG IVPB ONE (02:24)
[2020-11-26 04:53] LABS: URINE APPEARANCE CLEAR; URINE BILIRUBIN NEGATIVE (NEGATIVE); URINE COLOR YELLOW; URINE GLUCOSE (UA) NEGATIVE (NEGATIVE); URINE KETONE NEGATIVE (NEGATIVE); URINE LEUK ESTERASE NEGATIVE (NEGATIVE); URINE NITRITE NEGATIVE (NEGATIVE); URINE PROTEIN NEGATIVE (NEGATIVE); URINE UROBILINOGEN 0.2 mg/dL (0.2-1.0)
[2020-11-26 05:32] VITALS: BMI 28.0
[2020-11-26 07:38] LABS: COCAINE, UR NEGATIVE (NEGATIVE); OPIATES, URI NEGATIVE (NEGATIVE); PHENCYCLIDINE,URINE NEGATIVE (NEGATIVE); URINE AMPHETAMINES NEGATIVE (NEGATIVE); URINE BARBITURATES NEGATIVE (NEGATIVE); URINE BENZODIAZEPINES NEGATIVE (NEGATIVE)
[2020-11-26 07:39] LABS: METHADONE, UR NEGATIVE (NEGATIVE)
[2020-11-26 08:53] LABS: BASO % 0.5 % (0-2.0); EOS % 2.9 % (0-4.5); HEMATOCRIT 39.2 % (35.4-49); HEMOGLOBIN 13.5 GM/dL (11.7-16.9); LYMPH % 13.4 % (8-40); MCH 33.3 pg (25.7-33.7); MCHC 34.5 g/dl (32.0-35.9); MEAN CELL VOLUME 96.4 fl (80-96); MEAN PLT VOLUME 7.9 fl (7.5-11.1); MONO % 11.2 % (3.8-10.2); PLATELET COUNT 145 10^3/uL (134-434); RBC 4.07 M/mm3 (4.00-5.60); RDW 13.9 % (11.9-15.9); WHITE BLOOD COUNT 6.5 K/mm3 (4.0-10.0)
[2020-11-26 09:20] LABS: BLOOD UREA NITROGEN 22.6 mg/dL (7-18)
[2020-11-26 09:23] LABS: PHOSPHOROUS 2.3 mg/dL (2.5-4.9)
[2020-11-26] MEDS: CLINDAMYCIN 600MG PREMIX IVPB 600 MG/50 ML BAG IVPB SCH ×3 (09:59→22:23)
[2020-11-26] MEDS ORDERED: ALLOPURINOL 300 MG TABLET (FP) PO SCH (10:00)
[2020-11-26] MEDS ORDERED: ENOXAPARIN NA (PORCINE) 40 MG/0.4 ML DISP.SYRIN SQ SCH (10:00)
[2020-11-26] MEDS ORDERED: POTASSIUM PHOSPHATE 30 MM in SODIUM CHLORIDE 500 ML IVPB ONE (11:00)
[2020-11-26] MEDS ORDERED: CEFTRIAXONE 1 GM in DEXTROSE 5%-WATER - 50 ML IVPB SCH (11:15)
[2020-11-26] MEDS ORDERED: cefTRIAXone SODIUM 1 GM VIAL ONE (12:09)
[2020-11-26] MEDS ORDERED: DEXTROSE 5%-WATER - 50 ML IVPB ONE (12:10)
[2020-11-27] MEDS: CLINDAMYCIN 600MG PREMIX IVPB 600 MG/50 ML BAG IVPB SCH (04:18)
[2020-11-27 05:34] VITALS: BP 147/98; PULSE 62; TEMP 98.1
== END 2020-11-27 08:05 | disposition short-term general hospital (02) | DRG 603 ==
LOC: JER 19:34 → JERBED 11-26 01:36 → INTOOBSV 11-26 01:36 → J8W 11-26 05:07 → OBSVTOIN 11-26 14:19
PROVIDERS: ADMIT Internal Medicine; ATTEND Internal Medicine
DX: L03.211 Cellulitis of face (principal); I10 Essential (primary) hypertension; E66.9 Obesity, unspecified; Z68.28 Body mass index [BMI] 28.0-28.9, adult; M10.9 Gout, unspecified
CPT/HCPCS: 36415; 70487-TC; 80048; 80307; 81003; 83735; 84100; 85025; 87040; 87086; 93005; 93010; 99285-25; C9803; G0378; U0003; U0005

== ENCOUNTER 2021-03-01 18:19 | Emergency (ER) | payer OTHER, BC ==
[2021-03-01 18:32] VITALS: BP 160/84; PULSE 69; TEMP 98.2; BMI 28.0
[2021-03-01] MEDS ORDERED: diphenhydrAMINE HCL 25 MG CAPSULE (FP) PO ONE ×2 (19:11→19:24)
[2021-03-01] MEDS ORDERED: DEXAMETHASONE SOD PHOSPHATE 10 MG/1 ML VIAL IM ONE (19:13)
[2021-03-01] MEDS ORDERED: DEXAMETHASONE SOD PHOSPHATE 10 MG/1 ML VIAL ONE (19:24)
== END 2021-03-01 20:28 | disposition home or self-care (01) ==
LOC: JER 18:19
PROC: 3E023GC Introduction of Other Therapeutic Substance into Muscle, Percutaneous Approach (ICD-10-PCS; principal; 2021-03-01)
DX: L23.7 Allergic contact dermatitis due to plants, except food (principal)
CPT/HCPCS: 99284-25; J1100

== ENCOUNTER 2021-05-01 22:30 | Emergency (ER) | payer OTHER, BC ==
[2021-05-01 22:43] VITALS: BP 147/88; PULSE 73; TEMP 97.6; BMI 29.8
== END 2021-05-02 01:10 | disposition home or self-care (01) ==
LOC: JER 22:30
DX: S93.401A Sprain of unspecified ligament of right ankle, initial encounter (principal); X50.0XXA Overexertion from strenuous movement or load, initial encounter
CPT/HCPCS: 73610-TC-RT-FY; 73630-TC-RT-FY; 99283-25

== ENCOUNTER 2021-08-15 09:49 | Emergency (ER) | payer OTHER, BC ==
[2021-08-15 09:57] VITALS: BP 157/86; PULSE 66; TEMP 97.5; BMI 29.8
[2021-08-15] MEDS ORDERED: KETOROLAC TROMETHAMINE 30 MG/1 ML VIAL IM ONE (10:24)
[2021-08-15] MEDS ORDERED: LIDOCAINE 5% TOPICAL PATCH TP ONE (10:25)
[2021-08-15] MEDS ORDERED: LIDOCAINE 5% TOPICAL PATCH ONE (10:35)
[2021-08-15] MEDS ORDERED: KETOROLAC TROMETHAMINE 30 MG/1 ML VIAL ONE (10:35)
[2021-08-15] MEDS ORDERED: LIDOCAINE PATCH REMOVAL MC SCH (22:00)
== END 2021-08-15 13:12 | disposition home or self-care (01) ==
LOC: JERFT 09:49
PROC: 3E023GC Introduction of Other Therapeutic Substance into Muscle, Percutaneous Approach (ICD-10-PCS; principal; 2021-08-15)
DX: M71.21 Synovial cyst of popliteal space [Baker], right knee (principal); M54.2 Cervicalgia; M54.50 Low back pain, unspecified; M25.511 Pain in right shoulder
CPT/HCPCS: 73030-TC-RT-FY; 73564-TC-RT-FY; 93971-TC; 99284-25

== ENCOUNTER 2021-11-26 03:41 | Emergency (ER) | payer OTHER, BC ==
[2021-11-26 03:58] VITALS: BMI 29.5
[2021-11-26] MEDS ORDERED: KETOROLAC TROMETHAMINE 30 MG/1 ML VIAL IM ONE ×2 (05:43→06:10)
[2021-11-26] MEDS ORDERED: KETOROLAC TROMETHAMINE 30 MG/1 ML VIAL ONE (06:25)
[2021-11-26 07:38] VITALS: TEMP 97.9
[2021-11-26 07:54] LABS: BF WBC & OTHER NUCLEATED CELLS 15065 /mm3
[2021-11-26 08:10] VITALS: BP 161/94; PULSE 74; RESP 18
[2021-11-26 08:53] LABS: BODY FLUID MONOCYTE 4 %
[2021-11-26 08:56] LABS: CRYSTALS,SYNOVIAL FLUID NEGATIVE
== END 2021-11-26 08:14 | disposition home or self-care (01) ==
LOC: JER 03:41
PROC: 0S9C3ZZ Drainage of Right Knee Joint, Percutaneous Approach (ICD-10-PCS; principal; 2021-11-26)
PROC: 3E0233Z Introduction of Anti-inflammatory into Muscle, Percutaneous Approach (ICD-10-PCS; 2021-11-26)
DX: M25.462 Effusion, left knee (principal)
CPT/HCPCS: 73562-TC-LT-FY; 87070; 87075; 87205; 89060; 99284-25

== ENCOUNTER 2021-12-03 21:11 | Emergency (ER) | payer OTHER, BC ==
[2021-12-03 21:21] VITALS: BP 172/95; PULSE 69; RESP 19; TEMP 98.2; BMI 28.3
[2021-12-03] MEDS ORDERED: ACETAMINOPHEN 500 MG TABLET (FP) PO ONE (23:34)
[2021-12-03] MEDS ORDERED: ACETAMINOPHEN 325 MG TABLET (FP) ONE (23:36)
== END 2021-12-03 23:39 | disposition home or self-care (01) ==
LOC: JER 21:11
DX: R22.42 Localized swelling, mass and lump, left lower limb (principal)
CPT/HCPCS: 93971-TC; 99284-25

== ENCOUNTER 2022-01-30 09:49 | Emergency (ER) | payer OTHER, BC ==
[2022-01-30 10:38] VITALS: BP 149/95; PULSE 63; RESP 18; TEMP 97.8; BMI 29.9
[2022-01-30] MEDS ORDERED: ACETAMINOPHEN 325 MG TABLET (FP) PO ONE (10:53)
[2022-01-30] MEDS ORDERED: IBUPROFEN 600 MG TABLET (FP) PO ONE ×2 (10:53→11:20)
[2022-01-30] MEDS ORDERED: ACETAMINOPHEN 325 MG TABLET (FP) ONE (11:19)
[2022-01-30 12:14] LABS: BASO % 0.6 % (0-2.0); EOS % 4.3 % (0-4.5); HEMATOCRIT 44.9 % (35.4-49); LYMPH % 24.2 % (8-40); MCH 32.2 pg (25.7-33.7); MCHC 33.4 g/dl (32.0-35.9); MEAN CELL VOLUME 96.5 fl (80-96); MEAN PLT VOLUME 7.8 fl (7.5-11.1); NEUT % 58.9 % (42.8-82.8); PLATELET COUNT 188 10^3/uL (134-434); RBC 4.65 M/mm3 (4.00-5.60); RDW 13.4 % (11.9-15.9); WHITE BLOOD COUNT 5.3 K/mm3 (4.0-10.0)
[2022-01-30 12:41] LABS: INR 0.97 (0.83-1.09); PROTHROMBIN TIME (PATIENT) 11.2 SEC (9.7-13.0)
[2022-01-30 14:55] LABS: ALBUMIN 3.4 g/dl (3.4-5.0); BLOOD UREA NITROGEN 19.8 mg/dL (7-18); CALCIUM 9.3 mg/dL (8.5-10.1)
[2022-01-30 14:58] LABS: CREATININE 1.2 mg/dL (0.55-1.3)
[2022-01-30 15:00] LABS: BILIRUBIN,TOTAL 1.5 mg/dL (0.2-1); TOT PROT 6.6 g/dl (6.4-8.2)
== END 2022-01-30 15:39 | disposition home or self-care (01) ==
LOC: JER 09:49
DX: L03.116 Cellulitis of left lower limb (principal)
CPT/HCPCS: 36415; 73610-TC-LT-FY; 73630-TC-LT; 80053; 85025; 85610; 93971-TC; 99284-25

== ENCOUNTER → 2022-09-02 | Emergency (ER) | payer OTHER, BC ==
[~2022-09-02] MED LIST: KETOROLAC TROMETHAMINE 15 MG/ML VIAL IVPUSH ONE; KETOROLAC TROMETHAMINE 15 MG/ML VIAL ONE; morphine CARPU-JECT 2 MG/1 ML DISP.SYRIN IVPUSH ONE; morphine SULFATE 4 MG/ML VIAL ONE
[2022-09-02 05:15] VITALS: BMI 29.3
[2022-09-02 06:34] LABS: BASO % 0.7 % (0-2.0); EOS % 8.1 % (0-4.5); HEMATOCRIT 40.2 % (35.4-49); HEMOGLOBIN 14.2 GM/dL (11.7-16.9); LYMPH % 23.6 % (8-40); MCH 33.2 pg (25.7-33.7); MCHC 35.3 g/dl (32.0-35.9); MEAN CELL VOLUME 94.1 fl (80-96); MEAN PLT VOLUME 8.6 fl (7.5-11.1); MONO % 11.6 % (3.8-10.2); PLATELET COUNT 146 10^3/uL (134-434); RBC 4.27 M/mm3 (4.00-5.60); RDW 13.2 % (11.9-15.9); WHITE BLOOD COUNT 5.1 K/mm3 (4.0-10.0)
[2022-09-02 06:40] LABS: POTASSIUM 3.9 mmol/L (3.5-5.1)
[2022-09-02 06:42] LABS: ALBUMIN 3.3 g/dl (3.4-5.0); BLOOD UREA NITROGEN 23.9 mg/dL (7-18); CALCIUM 8.6 mg/dL (8.5-10.1); MAGNESIUM 1.8 mg/dL (1.8-2.4)
[2022-09-02 06:45] LABS: CREATININE 1.1 mg/dL (0.55-1.3)
[2022-09-02 06:47] LABS: BILIRUBIN,TOTAL 1.3 mg/dL (0.2-1); TOT PROT 6.1 g/dl (6.4-8.2)
[2022-09-02 08:10] LABS: URINE APPEARANCE CLEAR; URINE BILIRUBIN NEGATIVE (NEGATIVE); URINE COLOR YELLOW; URINE GLUCOSE (UA) NEGATIVE (NEGATIVE); URINE KETONE NEGATIVE (NEGATIVE); URINE LEUK ESTERASE NEGATIVE (NEGATIVE); URINE NITRITE NEGATIVE (NEGATIVE); URINE PROTEIN NEGATIVE (NEGATIVE); URINE UROBILINOGEN 0.2 mg/dL (0.2-1.0)
[2022-09-02 09:24] VITALS: BP 116/62; PULSE 60; RESP 20; TEMP 98.2
== END | disposition home or self-care (01) ==
LOC: JER 05:01
PROC: 3E0333Z Introduction of Anti-inflammatory into Peripheral Vein, Percutaneous Approach (ICD-10-PCS; principal; 2022-09-02)
PROC: 3E033GC Introduction of Other Therapeutic Substance into Peripheral Vein, Percutaneous Approach (ICD-10-PCS; 2022-09-02)
DX: M54.50 Low back pain, unspecified (principal); S32.039A Unspecified fracture of third lumbar vertebra, initial encounter for closed fracture; M25.561 Pain in right knee; M25.661 Stiffness of right knee, not elsewhere classified; M25.461 Effusion, right knee; W10.8XXA Fall (on) (from) other stairs and steps, initial encounter
CPT/HCPCS: 36415; 72131-TC; 73562-TC-RT-FY; 74177-TC; 80053; 81003; 83735; 85025; 87086; 93005; 93010; 99285-25; Q9967

== ENCOUNTER 2022-09-03 10:45 | Emergency (ER) | payer OTHER, BC ==
[2022-09-03 10:56] VITALS: BP 157/98; PULSE 62; RESP 18; TEMP 98.4; BMI 29.5
[2022-09-03] MEDS ORDERED: KETOROLAC TROMETHAMINE 30 MG/1 ML VIAL IM ONE (11:53)
[2022-09-03] MEDS ORDERED: KETOROLAC TROMETHAMINE 30 MG/1 ML VIAL ONE (11:57)
== END 2022-09-03 12:05 | disposition home or self-care (01) ==
LOC: FER 10:45
PROC: 0S9C3ZZ Drainage of Right Knee Joint, Percutaneous Approach (ICD-10-PCS; principal; 2022-09-03)
PROC: 3E0233Z Introduction of Anti-inflammatory into Muscle, Percutaneous Approach (ICD-10-PCS; 2022-09-03)
DX: M25.561 Pain in right knee (principal)
CPT/HCPCS: 99284-25

== ENCOUNTER 2022-09-24 21:48 | Emergency (ER) | payer OTHER, BC ==
[2022-09-24 21:57] VITALS: BP 139/86; PULSE 68; RESP 18; TEMP 98.1; BMI 29.8
[2022-09-24] MEDS ORDERED: KETOROLAC TROMETHAMINE 30 MG/1 ML VIAL IM ONE (23:05)
[2022-09-24] MEDS ORDERED: KETOROLAC TROMETHAMINE 30 MG/1 ML VIAL ONE (23:07)
== END 2022-09-25 01:40 | disposition home or self-care (01) ==
LOC: JER 21:48 → JERFT 21:48 → JER 09-25 01:40
PROC: 3E0233Z Introduction of Anti-inflammatory into Muscle, Percutaneous Approach (ICD-10-PCS; principal; 2022-09-24)
DX: M79.672 Pain in left foot (principal); M25.572 Pain in left ankle and joints of left foot; W18.39XA Other fall on same level, initial encounter
CPT/HCPCS: 73130-TC-RT-FY; 73562-TC-LT-FY; 73590-TC-LT-FY; 73610-TC-LT-FY; 73630-TC-LT; 99284-25

== ENCOUNTER 2022-09-27 08:46 | Emergency (ER) | payer OTHER, BC ==
[2022-09-27 08:49] VITALS: BP 159/92; PULSE 68; RESP 18; TEMP 98.5; BMI 29.8
[2022-09-27] MEDS ORDERED: KETOROLAC TROMETHAMINE 30 MG/1 ML VIAL ONE (09:34)
[2022-09-27] MEDS ORDERED: KETOROLAC TROMETHAMINE 30 MG/1 ML VIAL IM ONE (09:38)
[2022-09-27] MEDS ORDERED: CLINDAMYCIN HCL 150 MG CAPSULE (FP) PO ONE (11:57)
== END 2022-09-27 12:49 | disposition home or self-care (01) ==
LOC: JERFT 08:46 → JER 08:46 → JERFT 12:49
PROC: 3E0333Z Introduction of Anti-inflammatory into Peripheral Vein, Percutaneous Approach (ICD-10-PCS; principal; 2022-09-27)
DX: M25.562 Pain in left knee (principal); R22.42 Localized swelling, mass and lump, left lower limb; M25.462 Effusion, left knee; M71.22 Synovial cyst of popliteal space [Baker], left knee; M79.662 Pain in left lower leg; M25.572 Pain in left ankle and joints of left foot
CPT/HCPCS: 93971-TC; 99284-25

== ENCOUNTER 2022-10-26 08:34 | Emergency (ER) | payer OTHER, BC ==
[2022-10-26 08:46] VITALS: BMI 36.9
[2022-10-26] MEDS ORDERED: KETOROLAC TROMETHAMINE 15 MG/ML VIAL IVPUSH ONE (10:02)
[2022-10-26] MEDS ORDERED: KETOROLAC TROMETHAMINE 15 MG/ML VIAL ONE (10:07)
[2022-10-26 10:20] LABS: BASO % 0.4 % (0-2.0); EOS % 2.8 % (0-4.5); HEMATOCRIT 40.6 % (35.4-49); HEMOGLOBIN 13.6 GM/dL (11.7-16.9); LYMPH % 17.6 % (8-40); MCH 31.6 pg (25.7-33.7); MCHC 33.4 g/dl (32.0-35.9); MEAN CELL VOLUME 94.7 fl (80-96); MEAN PLT VOLUME 8.3 fl (7.5-11.1); MONO % 13.2 % (3.8-10.2); PLATELET COUNT 161 10^3/uL (134-434); RBC 4.28 M/mm3 (4.00-5.60); RDW 13.6 % (11.9-15.9)
[2022-10-26 10:48] LABS: POTASSIUM 3.8 mmol/L (3.5-5.1)
[2022-10-26 10:52] LABS: ALBUMIN 3.2 g/dl (3.4-5.0)
[2022-10-26 10:58] LABS: URIC ACID 4.9 mg/dL (2.6-7.2)
[2022-10-26 11:46] LABS: INR 0.94 (0.83-1.09); PROTHROMBIN TIME (PATIENT) 10.9 SEC (9.7-13.0)
[2022-10-26 11:49] LABS: ACTIVATED PTT 25.8 SECONDS (25.2-36.5)
[2022-10-26 11:55] LABS: ERYTHROCYTE SEDIMENTATION RATE 11 mm/hr (0-20)
[2022-10-26 13:04] LABS: BF WBC & OTHER NUCLEATED CELLS 4493 /mm3
[2022-10-26 13:33] LABS: CRYSTALS,SYNOVIAL FLUID PRESENT
[2022-10-26 13:50] VITALS: BP 143/87; PULSE 54; RESP 20; TEMP 97.6
[2022-10-26] MEDS ORDERED: INDOMETHACIN 50 MG CAPSULE PO ONE (14:10)
[2022-10-26] MEDS ORDERED: COLCHICINE 0.6 MG CAP PO ONE (14:10)
[2022-10-26] MEDS ORDERED: COLCHICINE 0.6 MG TAB PO ONE (14:30)
[2022-10-26 14:41] LABS: BODY FLUID MONOCYTE 10 %
== END 2022-10-26 14:49 | disposition home or self-care (01) ==
LOC: JERFT 08:34
PROC: 0S9D4ZZ Drainage of Left Knee Joint, Percutaneous Endoscopic Approach (ICD-10-PCS; principal; 2022-10-26)
PROC: 3E0333Z Introduction of Anti-inflammatory into Peripheral Vein, Percutaneous Approach (ICD-10-PCS; 2022-10-26)
DX: M79.662 Pain in left lower leg (principal); R60.0 Localized edema; M10.9 Gout, unspecified; M19.90 Unspecified osteoarthritis, unspecified site; L03.116 Cellulitis of left lower limb; M25.562 Pain in left knee
CPT/HCPCS: 36415; 73562-TC-LT-FY; 80053; 82945; 84157; 84550; 85025; 85610; 85651; 85730; 86140; 87070; 87075; 87205; 89060; 93971-TC; 99285-25

== ENCOUNTER 2023-02-26 08:57 | Observation (INO) | payer OTHER, BC ==
[2023-02-26 09:30] VITALS: BMI 30.1
[2023-02-26] MEDS ORDERED: ACETAMINOPHEN 1000 MG/100 ML BAG IVPB ONE (10:19)
[2023-02-26] MEDS ORDERED: ACETAMINOPHEN INJECTION 100 ML IVPB ONE (10:53)
[2023-02-26 11:40] LABS: BASO % 0.6 % (0-2.0); EOS % 1.8 % (0-4.5); HEMATOCRIT 44.8 % (35.4-49); HEMOGLOBIN 14.8 GM/dL (11.7-16.9); LYMPH % 21.7 % (8-40); MCH 31.8 pg (25.7-33.7); MCHC 33.1 g/dl (32.0-35.9); MEAN CELL VOLUME 96.3 fl (80-96); MEAN PLT VOLUME 8.6 fl (7.5-11.1); MONO % 12.9 % (3.8-10.2); PLATELET COUNT 156 10^3/uL (134-434); RBC 4.66 M/mm3 (4.00-5.60); RDW 14.1 % (11.9-15.9); WHITE BLOOD COUNT 4.1 K/mm3 (4.0-10.0)
[2023-02-26 11:42] LABS: EPI CELLS 1 /uL (0-25.1); HYALINE CASTS 0 /uL (0-3.1); PH,URINE 5.5 (5.0-8.0); URINE APPEARANCE CLEAR; URINE BACTERIA 7 /uL (0-1359); URINE BILIRUBIN NEGATIVE (NEGATIVE); URINE COLOR YELLOW; URINE GLUCOSE (UA) NEGATIVE (NEGATIVE); URINE KETONE NEGATIVE (NEGATIVE); URINE LEUK ESTERASE NEGATIVE (NEGATIVE); URINE NITRITE NEGATIVE (NEGATIVE); URINE PROTEIN NEGATIVE (NEGATIVE); URINE RBC 185 /uL (0-23.9); URINE UROBILINOGEN 0.2 mg/dL (0.2-1.0); URINE WBC 2 /uL (0-25.8)
[2023-02-26 11:46] LABS: INR 0.97 (0.83-1.09); PROTHROMBIN TIME (PATIENT) 11.2 SEC (9.7-13.0)
[2023-02-26 11:48] LABS: ACTIVATED PTT 27.5 SECONDS (25.2-36.5)
[2023-02-26 12:16] LABS: POTASSIUM 4.1 mmol/L (3.5-5.1)
[2023-02-26 12:19] LABS: CALCIUM 8.7 mg/dL (8.5-10.1)
[2023-02-26 12:20] LABS: ALBUMIN 3.4 g/dl (3.4-5.0); BLOOD UREA NITROGEN 21.3 mg/dL (7-18); MAGNESIUM 2.3 mg/dL (1.8-2.4)
[2023-02-26 12:24] LABS: BILIRUBIN,TOTAL 1.7 mg/dL (0.2-1); TOT PROT 6.3 g/dl (6.4-8.2)
[2023-02-26 14:30] LABS: BILIRUBIN,DIRECT 0.3 mg/dL (0.0-0.2)
[2023-02-26] MEDS ORDERED: SODIUM CHLORIDE 500 ML IV STA (15:04)
[2023-02-26] MEDS ORDERED: LIDOCAINE 4% PATCH TP SCH (15:15)
[2023-02-26] MEDS ORDERED: amLODIPine BESYLATE 5 MG TABLET (FP) PO SCH (15:15)
[2023-02-26] MEDS ORDERED: CYCLOBENZAPRINE HCL 5 MG TABLET PO SCH (15:15)
[2023-02-26] MEDS ORDERED: CYCLOBENZAPRINE HCL 5 MG TABLET ONE ×3 (15:45→15:49)
[2023-02-26] MEDS ORDERED: amLODIPine BESYLATE 5 MG TABLET (FP) ONE ×2 (15:45→15:48)
[2023-02-26 15:51] VITALS: RESP 20; TEMP 97.5
[2023-02-26] MEDS ORDERED: ACETAMINOPHEN 1000 MG/100 ML BAG IVPB PRN (18:07)
[2023-02-26 18:36] VITALS: BP 164/101; PULSE 77
[2023-02-26] MEDS ORDERED: LIDOCAINE PATCH REMOVAL MC SCH (22:00)
[2023-02-27] MEDS ORDERED: ALLOPURINOL 300 MG TABLET (FP) PO SCH (10:00)
[2023-02-27] MEDS ORDERED: ENOXAPARIN NA (PORCINE) 40 MG/0.4 ML DISP.SYRIN SQ SCH (10:00)
== END 2023-02-26 18:48 | disposition home or self-care (01) ==
LOC: JER 08:57 → JERBED 13:37
PROVIDERS: ADMIT Internal Medicine; ATTEND Internal Medicine
PROC: 3E033NZ Introduction of Analgesics, Hypnotics, Sedatives into Peripheral Vein, Percutaneous Approach (ICD-10-PCS; principal; 2023-02-26)
PROC: 3E0337Z Introduction of Electrolytic and Water Balance Substance into Peripheral Vein, Percutaneous Approach (ICD-10-PCS; 2023-02-26)
DX: M62.838 Other muscle spasm (principal); I10 Essential (primary) hypertension; N20.0 Calculus of kidney; M10.9 Gout, unspecified; M19.90 Unspecified osteoarthritis, unspecified site; R31.29 Other microscopic hematuria; R07.89 Other chest pain; N23 Unspecified renal colic
CPT/HCPCS: 36415; 71045-TC-FY; 71275-TC; 74174-TC; 80053; 80061; 81003; 82248; 83036; 83735; 84484; 85025; 85610; 85730; 87086; 93005; 93010; 96361; 96374; 99285-25; G0378; Q9967

== ENCOUNTER 2023-03-21 12:29 | Emergency (ER) | payer OTHER, BC ==
[2023-03-21 12:34] VITALS: BP 161/83; PULSE 63; RESP 18; TEMP 97.6; BMI 30.1
[2023-03-21] MEDS ORDERED: KETOROLAC TROMETHAMINE 30 MG/1 ML VIAL IM ONE (14:38)
[2023-03-21] MEDS ORDERED: KETOROLAC TROMETHAMINE 30 MG/1 ML VIAL ONE (14:45)
== END 2023-03-21 14:56 | disposition home or self-care (01) ==
LOC: JERFT 12:29
PROC: 3E0233Z Introduction of Anti-inflammatory into Muscle, Percutaneous Approach (ICD-10-PCS; principal; 2023-03-21)
DX: M25.561 Pain in right knee (principal); M17.11 Unilateral primary osteoarthritis, right knee
CPT/HCPCS: 73562-TC-RT-FY; 99284-25

== ENCOUNTER 2023-11-25 05:52 | Emergency (ER) | payer OTHER, BC ==
[2023-11-25 06:06] VITALS: RESP 18; TEMP 98.4; BMI 27.8
[2023-11-25] MEDS ORDERED: IBUPROFEN 600 MG TABLET (FP) PO ONE ×2 (07:43→07:48)
[2023-11-25] MEDS: IBUPROFEN 600 MG TABLET (FP) PO ONE (07:48)
[2023-11-25] MEDS: IBUPROFEN 800 MG/8 ML IJ IVPB ONE (07:49)
[2023-11-25] MEDS ORDERED: ACETAMINOPHEN 325 MG TABLET (FP) ONE (09:35)
[2023-11-25] MEDS: ACETAMINOPHEN 500 MG TABLET (FP) PO ONE (09:38)
[2023-11-25 11:26] VITALS: BP 152/87; PULSE 62
== END 2023-11-25 11:26 | disposition home or self-care (01) ==
LOC: JER 05:52
DX: M25.561 Pain in right knee (principal); G89.29 Other chronic pain
CPT/HCPCS: 73562-TC-RT-FY; 73700-TC-RT; 99284-25

== ENCOUNTER 2025-01-16 17:57 | Emergency (ER) | payer OTHER, BC ==
[2025-01-16 18:07] VITALS: BP 140/90; PULSE 71; RESP 20; TEMP 97.9; BMI 28.3
[2025-01-16] MEDS ORDERED: IBUPROFEN 600 MG TABLET (FP) PO ONE (19:34)
[2025-01-16] MEDS: IBUPROFEN 600 MG TABLET (FP) PO ONE (19:42)
== END 2025-01-16 19:51 | disposition home or self-care (01) ==
LOC: JER 17:57
DX: M25.572 Pain in left ankle and joints of left foot (principal); M79.675 Pain in left toe(s); M10.9 Gout, unspecified; M79.89 Other specified soft tissue disorders
CPT/HCPCS: 73610-TC-LT-FY; 73630-TC-LT; 99283-25